=== PATIENT | male | born 1985 | race Caucasian/White ===

== ENCOUNTER 2020-03-25 15:42 | Inpatient (IN) | payer SELFPAY ==
[~2020-03-25] VITALS: Ht 182.9 cm; Wt 75.8 kg
[2020-03-25] MEDS ORDERED: IV NORMAL SALINE 1000ML BAG 1,000 ML IV SCH (16:00)
[2020-03-25] MEDS ORDERED: ONDANSETRON PF 4 MG/2 ML VIAL. IVP ONE ×2 (16:00→17:15)
--- NOTE | 2020-03-25 16:13 | PHYS DOC ---
General Adult EDM: Chief Complaint: NAUSEA/VOMITING/DIARRHA HPI: HPI: Patient is a 34 year old male who presents with nausea and vomiting since today. Can not keep anything fluids down. States he has only had ice chips today and has tried no food. Denies taking any medications to help his symptoms. Markel es pain, abdominal pain, chest pain, nasal congestion, dizziness, shortness of breath, diarrhea, headache, syncope, back pain, urinary symptoms, numbness or tingling, focal weakness, cough. Denies any past medical history, drug use, alcohol use, or surgeries. Review of Systems: Review of Systems: Constitutional: Denies fever or chills. [] Eyes: Denies change in visual acuity. [] HENT: Denies nasal congestion or sore throat. [] Respiratory: Denies cough or shortness of breath. [] Cardiovascular: Denies chest pain or edema. [] GI: Denies abdominal pain. + nausea, +vomiting, denies bloody stools or d iarrhea. [] : Denies dysuria. [] Musculoskeletal: Denies back pain or joint pain. [] Integument: Denies rash. [] Neurologic: Denies headache, focal weakness or sensory changes. [] Endocrine: Denies polyuria or polydipsia. [] Lymphatic: Denies swollen glands. [] Psychiatric: Denies depression or anxiety. [] Heart Score: Risk Factors: Risk Factors: DM, Current or recent (<one month) smoker, HTN, HLP, family history of CAD, obesity. Risk Scores: Score 0 - 3: 2.5% MACE over next 6 weeks - Discharge Home Score 4 - 6: 20.3% MACE over next 6 weeks - Admit for Clinical Observation Score 7 - 10: 72.7% MACE over next 6 weeks - Early Invasive Strategies Current Medications: Current Medications Medications (Trade) Dose Ordered Sig/Emilio Start Time Stop Time Status Last Admin Dose Admin Ondansetron HCl (Zofran) 4 mg 1X ONCE 03/25/20 16:00 03/25/20 16:04 DC Sodium Chloride 1,000 ml @ 1,000 mls/hr Q1H 03/25/20 16:00 03/25/20 16:59 Allergies: Allergies: Allergies Coded Allergies Type Severity Reaction Last Updated Verified Penicillins Allergy Unknown 03/25/20 Yes Physical Exam: PE: Constitutional: Well developed, well nourished, no acute distress, non-toxic appearance. [] HENT: Normocephalic, atraumatic, bilateral external ears normal, oropharynx moist, no oral exudates, nose normal. [] Eyes: PERRLA, EOMI, conjunctiva normal, no discharge. [] Neck: Normal range of motion, no tenderness, supple, no stridor. [] Cardiovascular:Heart rate regular rhythm, no murmur [] Lungs & Thorax: Bilateral breath sounds clear to auscultation [] Abdomen: Bowel sounds normal, soft, no tenderness, no masses, no pulsatile karl s. [] Skin: Warm, dry, no erythema, no rash. [] Back: No tenderness, no CVA tenderness. [] Extremities: No tenderness, no cyanosis, no clubbing, ROM intact, no edema. [] Neurologic: Alert and oriented X 3, normal motor function, normal sensory function, no focal deficits noted. [] Psychologic: Affect normal, judgement normal, mood normal. Normal Physical Exam[] EKG: EKG: [] Radiology/Procedures: Radiology/Procedures: [] Impression: [facility] [address] [place], [place] [id number] IMAGING REPORT Signed PATIENT: SALAZAR WORTHY ACCOUNT: [id number] : 1985 LOCATION: ER AGE: 34 SEX: M EXAM STATUS: REG ER ORD. PHYSICIAN: ALBERTO CASTILLO APRN REASON: ABD PAIN, VOMITING, PUI PROCEDURE: CT ABD PELV W/ IV CONTRST ONLY EXAM: CT Abdomen and Pelvis with IV contrast CLINICAL HISTORY: Reason: ABD PAIN, VOMITING, PUI COMPARISON: none TECHNIQUE: Helical CT of the abdomen and pelvis was performed following the administration of IV contrast. Axial, coronal and sagittal reformatted images were generated. ---PQRS compliance statement - One or more of the following individualized dose reduction techniques were utilized for this study: 1. Automated exposure control 2. Adjustment of the mA and/or kV according to patient size 3. Use of iterative reconstruction technique--- FINDINGS: Lower chest: Thickening of the distal esophagus, possibly from esophagitis or recent history of emesis. Abdomen and pelvis: No focal liver lesion. Liver is enlarged measuring 19 cm in length. High density material dependently within the gallbladder likely sludge. No biliary duct dilatation. Pancreas, spleen, adrenal glands are unremarkable. Symmetric nephrograms. No focal renal lesion. Punctate nonobstructing left lower pole renal calculus. No hydronephrosis or hydroureter. Partially distended bladder is unremarkable. Moderate colonic stool content is seen. No small or large bowel dilatation. No bowel obstruction. Appendix is not convincingly seen. Trace infiltration is seen about the right colon. No abdominal or pelvic lymphadenopathy. No abdominal or pelvic ascites. Aorta is normal in caliber. Bones: No aggressive osseous lesion is seen. IMPRESSION: 1. Thickening of the distal esophagus, possibly from esophagitis or recent history of emesis. 2. Trace infiltration is seen about the right colon, may represent colitis, possibly infectious or inflammatory in nature 3. Appendix is not convincingly seen. No secondary signs of acute appendicitis. 4. Punctate nonobstructing left lower pole renal calculus. Electronically signed by: Clive Alonzo MD (03/25/2020 6:28 PM) [facility] DICTATED and SIGNED BY: CLIVE ALONZO MD DATE: 03/25/20 [id number] 0 Course & Med Decision Making: Course & Med Decision Making Pertinent Labs and Imaging studies reviewed. (See chart for details) COVID-19 CRITERIA: The patient was evaluated during the global COVID-19 pandemic, and that diagnosis was suspected/considered upon their initial presentation. Their evaluation, treatment and testing was consistent with current guidelines for patients who present with complaints or symptoms that may be related to COVID-19. See HPI. Abdomen is soft and nontender. Speaks in full clear sentences. Ambulatory with steady gait. Skin pink warm and dry. Alert and oriented x 4. Vital signs wnl. IMPRESSION: 1. Thickening of the distal esophagus, possibly from esophagitis or recent history of emesis. 2. Trace infiltration is seen about the right colon, may represent colitis, possibly infectious or inflammatory in nature 3. Appendix is not convincingly seen. No secondary signs of acute appendicitis. 4. Punctate nonobstructing left lower pole renal calculus. Patient has received 2 L of fluid. Patient continues to vomit. He has received 8 mg of Zofran and I have just now ordered Compazine for him. I have ordered Flagyl and Cipro. Patient is admitted to Dr Owen for intractable vomiting. [] Juanito Disclaimer: Juanito Disclaimer: This electronic medical record was generated, in whole or in part, using a voice recognition dictation system. COVID-19 Patient Risks: Age 65 or older: No Sign of co-morbidity: No Exp to person + for COVID: No Exp to PUI: No Travel from affected area: No Lower respiratory symptoms: No Fever: No Other: Yes (nausea and vomiting) PPE Use: Full PPE with N95 mask or PAPR: Yes Departure Departure Impression: Primary Impression: Intractable nausea and vomiting Additional Impressions: Colitis Person under investigation for COVID-19 Disposition: 09 ADMITTED INPT THIS HOSP Admitting Physician: TIFFANY Condition: STABLE Referrals: NO PCP (PCP) ALBERTO CASTILLO APRN Mar 25, 2020 16:13
[2020-03-25 16:30] LABS: BASO % 0 % (0-3); EOS % 0 % (0-3); HEMATOCRIT 48.4 % (39.0-53.0); HEMOGLOBIN 16.7 g/dL (13.0-17.5); LYMPH % 9 % (24-48); MEAN CORPUSCULAR HEMOGLOBIN 31 pg (25-35); MEAN CORPUSCULAR HGB CONC 35 g/dL (31-37); MEAN CORPUSCULAR VOLUME 89 fL (79-100); MONO # 0.4 x10^3/uL (0.0-1.1); MONO % 3 % (0-9); NEUT # 10.5 x10^3/uL (1.8-7.7); NEUT % 88 % (31-73); PLATELET COUNT 203 x10^3/uL (140-400); RED BLOOD COUNT 5.44 x10^6/uL (4.30-5.70); RED CELL DISTRIBUTION WIDTH 14.3 % (11.5-14.5)
[2020-03-25 16:32] LABS: BILIRUBIN,URINE SMALL (NEG); CLARITY,URINE CLEAR; COLOR,URINE AMBER; NITRITE,URINE NEGATIVE (NEG); PROTEIN,URINE 100 mg/dL (NEG-TRACE)
[2020-03-25 16:39] LABS: BACTERIA,URINE 0 /HPF (0-FEW); RBC,URINE 0 /HPF (0-2); WBC,URINE OCC /HPF (0-4)
[2020-03-25 16:46] LABS: ANION GAP 16 (6-14); BLOOD UREA NITROGEN 13 mg/dL (8-26); BUN/CREATININE RATIO 9 (6-20); CALCIUM 9.7 mg/dL (8.5-10.1); CARBON DIOXIDE 25 mmol/L (21-32); CHLORIDE 101 mmol/L (98-107); CREATININE 1.4 mg/dL (0.7-1.3); GLUCOSE 203 mg/dL (70-99); POTASSIUM 4.1 mmol/L (3.5-5.1); SODIUM 142 mmol/L (136-145)
[2020-03-25 16:48] LABS: BARBITURATES NEG (NEG); BENZODIAZEPINES NEG (NEG); CANNABINOIDS NEG (NEG); COCAINE NEG (NEG); METHADONE NEG (NEG); OPIATES NEG (NEG); PHENCYCLIDINE NEG (NEG)
[2020-03-25 16:53] LABS: ALBUMIN 4.6 g/dL (3.4-5.0); ALBUMIN/GLOBULIN RATIO 1.4 (1.0-1.7); ALK PHOS 80 U/L (46-116); ALT (SGPT) 24 U/L (16-63); LIPASE 58 U/L (73-393); TOTAL BILIRUBIN 0.4 mg/dL (0.2-1.0)
[2020-03-25 16:59] LABS: % BANDS 4 % (0-9); % LYMPHS 6 % (24-48); % MONOS 5 % (0-10); % SEGS 85 % (35-66); AST (SGOT) < 5 U/L (15-37); PLT ESTIMATE ADEQUATE (ADEQUATE)
[2020-03-25 17:00] LABS: AMPHETAMINE/METHAMPHETAMINE NEG (NEG)
[2020-03-25] MEDS ORDERED: IV NORMAL SALINE 1000ML BAG 1,000 ML IV ONE (17:15)
[2020-03-25 17:41] LABS: INFLUENZA A PATIENT NEGATIVE (NEGATIVE); INFLUENZA B PATIENT NEGATIVE (NEGATIVE)
[2020-03-25] MEDS ORDERED: CONTRAST GIVEN. MC PRN (17:45)
[2020-03-25] MEDS ORDERED: IOHEXOL 300 MG/ML 100ML VIAL. IV ONE (17:45)
--- NOTE | 2020-03-25 18:31 | RAD ---
EXAM: CT Abdomen and Pelvis with IV contrast CLINICAL HISTORY: Reason: ABD PAIN, VOMITING, PUI COMPARISON: none TECHNIQUE: Helical CT of the abdomen and pelvis was performed following the administration of IV cont rast. Axial, coronal and sagittal reformatted images were generated. ---PQRS compliance statement - One or more of the following individualized dose reduction techniques were utilized for this study: 1. Automated exposure control 2. Adjustment of the mA and/or kV according to patient size 3. Use of iterative reconstruction technique--- FINDINGS: Lower chest: Thickening of the distal esophagus, possibly from esophagitis or recent history of emesi s. Abdomen and pelvis: No focal liver lesion. Liver is enlarged measuring 19 cm in length. High density material dependently within the gallbladder likely sludge. No biliary duct dilatation. Pancreas, spleen, adrenal glands a re unremarkable. Symmetric nephrograms. No focal renal lesion. Punctate nonobstructing left lower pole renal calculus. No hydronephrosis or hydroureter. Partially distended bladder is unremarkable. Moderate colonic stool content is seen. No small or large bowel dilatation. No bowel obstruction. Ivonne endix is not convincingly seen. Trace infiltration is seen about the right colon. No abdominal or pelvic lymphadenopathy. No abdominal or pelvic ascites. Aorta is normal in caliber. Bones: No aggressive osseous lesion is seen. IMPRESSION: 1. Thickening of the distal esophagus, possibly from esophagitis or recent history of emesis. 2. Trace infiltration is seen about the right colon, may represent colitis, possibly infectious or i nflammatory in nature 3. Appendix is not convincingly seen. No secondary signs of acute appendicitis. 4. Punctate nonobstructing left lower pole renal calculus. Electronically signed by: Clive Stoddard MD (03/25/2020 6:28 PM) PRANEETH
[2020-03-25] MEDS ORDERED: PROCHLORPERAZINE 10 MG/2 ML VIAL. IV ONE (19:00)
[2020-03-25] MEDS ORDERED: methylPREDNISolone SOD SUCC PF 40 MG/ML VIAL. IV ONE (19:00)
[2020-03-25] MEDS ORDERED: CIPROFLOXACIN 400MG PREMIX 200 ML IV ONE (19:00)
[2020-03-25] MEDS ORDERED: FAMOTIDINE 20 MG/2 ML VIAL IVP ONE (19:00)
[2020-03-25] MEDS ORDERED: fentaNYL PF VIAL 100 MCG/2 ML VIAL IV PRN (19:00)
[2020-03-25] MEDS ORDERED: ONDANSETRON PF 4 MG/2 ML VIAL. IV PRN (19:00)
[2020-03-25] MEDS: IV NORMAL SALINE 1000ML BAG 1,000 ML IV SCH (20:25)
--- NOTE | 2020-03-25 23:22 | NUR ---
The patient, SALAZAR WORTHY, 34 y/o, M admitted by QUINN JOHNSON III, DO, was given written information regarding hospital policies, unit procedures and contact persons. Valuables were checked and left with him.
[2020-03-25 23:44] VITALS: BP 119/64
[2020-03-26] MEDS ORDERED: ACETAMINOPHEN 325 MG TABLET. PO PRN (00:30)
[2020-03-26 03:00] VITALS: BP 101/56
[2020-03-26] MEDS: IV NORMAL SALINE 1000ML BAG 1,000 ML IV SCH ×2 (03:18→08:56)
[2020-03-26 07:00] VITALS: BP 100/54
[2020-03-26] MEDS ORDERED: FLU VACC QS 2020-21(6MOS+)/PF 0.5 ML SYRINGE. VAX IM ONE (09:00)
--- NOTE | 2020-03-26 09:22 | PDOC1 ---
History and Physical Date of Service: DOS: DATE: 03/26/20 TIME: 09:19 History of Present Illness: HPI: 34 year old male who presents with nausea and vomiting since today. Can not keep anything fluids down. States he has only had ice chips today and has tried no food. Denies taking any medications to help his symptoms. Denies pain, abdominal pain, chest pain, nasal congestion, dizziness, shortness of breath, diarrhea, headache, syncope, back pain, urinary symptoms, numbness or tingling, focal weakness, cough. Denies any past medical history, drug use, alcohol use, or surgeries. Allergies: Allergies: Coded Allergies: Penicillins (Verified Allergy, Intermediate, 03/26/20) Current Medications: Current Medications Current Medications Sodium Chloride 1,000 ml @ 1,000 mls/hr Q1H IV Last administered on 03/25/20at 16:20; Start 03/25/20 at 16:00; Stop 03/25/20 at 16:59; Status DC Ondansetron HCl (Zofran) 4 mg 1X ONCE IVP Last administered on 03/25/20at 16:21; Start 03/25/20 at 16:00; Stop 03/25/20 at 16:04; Status DC Ondansetron HCl (Zofran) 4 mg 1X ONCE IVP Last administered on 03/25/20at 17:12; Start 03/25/20 at 17:15; Stop 03/25/20 at 17:16; Status DC Sodium Chloride 1,000 ml @ 1,000 mls/hr 1X ONCE IV Last administered on 03/25/20at 18:38; Start 03/25/20 at 17:15; Stop 03/25/20 at 18:14; Status DC Iohexol (Omnipaque 300 Mg/ml) 60 ml 1X ONCE IV Last administered on 03/25/20at 17:59; Start 03/25/20 at 17:45; Stop 03/25/20 at 17:46; Status DC Info (CONTRAST GIVEN -- Rx MONITORING) 1 each PRN DAILY PRN MC SEE COMMENTS; Start 03/25/20 at 17:45; Stop 03/27/20 at 17:44 Prochlorperazine Edisylate (Compazine) 10 mg 1X ONCE IV Last administered on 03/25/20at 20:21; Start 03/25/20 at 19:00; Stop 03/25/20 at 19:01; Status DC Ciprofloxacin/ Dextrose 200 ml @ 200 mls/hr 1X ONCE IV Last administered on 03/25/20at 22:01; Start 03/25/20 at 19:00; Stop 03/25/20 at 19:59; Status DC Metronidazole 100 ml @ 100 mls/hr 1X ONCE IV Last administered on 03/25/20at 20:25; Start 03/25/20 at 19:00; Stop 03/25/20 at 19:59; Status DC Methylprednisolone Sodium Succinate (SOLU-Medrol 40MG VIAL) 80 mg 1X ONCE IV Last administered on 03/25/20at 20:19; Start 03/25/20 at 19:00; Stop 03/25/20 at 19:01; Status DC Famotidine (Pepcid Vial) 20 mg 1X ONCE IVP Last administered on 03/25/20at 20:21; Start 03/25/20 at 19:00; Stop 03/25/20 at 19:01; Status DC Ondansetron HCl (Zofran) 4 mg PRN Q8HRS PRN IV NAUSEA/VOMITING; Start 03/25/20 at 19:00; Stop 03/26/20 at 18:59 Fentanyl Citrate (Fentanyl 2ml Vial) 50 mcg PRN Q1HR PRN IV PAIN; Start 03/25/20 at 19:00; Stop 03/26/20 at 18:59 Sodium Chloride 1,000 ml @ 125 mls/hr Q8H IV Last administered on 03/26/20at 08:56; Start 03/25/20 at 19:00; Stop 03/26/20 at 18:59 Acetaminophen (Tylenol) 650 mg PRN Q6HRS PRN PO MILD PAIN / TEMP > 100.3'F Last administered on 03/26/20at 00:32; Start 03/26/20 at 00:30 Influenza Virus Vaccine Quadrival (Fluzone Quad Syringe) 0.5 ml ONCE ONCE VAX IM ; Start 03/26/20 at 09:00; Stop 03/26/20 at 09:01; Status DC ROS: Review of Systems Review of System REVIEW OF SYSTEMS: GENERAL: Denies weakness SKIN: No bruising, hair changes or rashes. EYES: No blurred, double or loss of vision. NOSE AND THROAT: No history of nosebleeds, hoarseness or sore throat. HEART: No history of palpitations, chest pain or shortness of breath on exertion. LUNGS: Denies cough, hemoptysis, wheezing or shortness of breath. GASTROINTESTINAL: Denies changes in appetite, nausea, vomiting, diarrhea or constipation. GENITOURINARY: No history of frequency, urgency, hesitancy or nocturia. NEUROLOGIC: Denies history of numbness, tingling, or tremor. PSYCHIATRIC: No history of panic, anxiety or depression. ENDOCRINE: No history of heat or cold intolerance, polyuria or polydipsia. EXTREMITIES: Denies joint pain, pain on walking or stiffness. Physical Exam: Vital Signs: Vital Signs Date Time Temp Pulse Resp B/P (MAP) Pulse Ox O2 Delivery O2 Flow Rate FiO2 03/26/20 07:00 98.7 74 18 100/54 (69) 96 Room Air 98.7 Physcial Exam: GEN: No apparent distress. Alert and oriented HEENT: Normal cephalic, atraumatic, external auditory canals are patent EYES: Extraocular muscles are intact, pupil are equally round and reactive to light and accommodation MUSCULOSKELETAL: Well developed , well nourished, good range of motion ENDOCRINE: No thyromegaly was palpated LYMPHATICS: No cervical chain or axillary nodes were noted HEMATOPOIETIC: No bruising NECK: Supple, no JVD, no thyromegaly was noted LUNGS: Clear to auscultation in all lung alex without rhonchi or wheezing HEART: RRR, S!, S2 present. Peripheral pulses intact, no obvious murmurs noted ABDOMEN: Soft, nontender. Positive bowel sounds, no organomegaly, normal bowel sounds EXTREMITIES: Without clubbing, cyanosis, or edema. Pedal pulses intact. Negative Homans sign NEUROLOGIC: Normal speech and tone. A&O x 3, moves all extremities, no obvious focal deficits PSYCHIATRIC: Normal affect, normal mood. Stable SKIN: No ulcerations or rashes, good skin turgor, no jaundice VASCULAR: Good capillary refill, neurovascular bundle appears to be intact Labs: Labs: Laboratory Tests Test 03/25/20 16:21 03/25/20 16:22 03/25/20 17:14 White Blood Count 12.0 x10^3/uL (4.0-11.0) Red Blood Count 5.44 x10^6/uL (4.30-5.70) Hemoglobin 16.7 g/dL (13.0-17.5) Hematocrit 48.4 % (39.0-53.0) Mean Corpuscular Volume 89 fL (79-100) Mean Corpuscular Hemoglobin 31 pg (25-35) Mean Corpuscular Hemoglobin Concent 35 g/dL (31-37) Red Cell Distribution Width 14.3 % (11.5-14.5) Platelet Count 203 x10^3/uL (140-400) Neutrophils (%) (Auto) 88 % (31-73) Lymphocytes (%) (Auto) 9 % (24-48) Monocytes (%) (Auto) 3 % (0-9) Eosinophils (%) (Auto) 0 % (0-3) Basophils (%) (Auto) 0 % (0-3) Neutrophils # (Auto) 10.5 x10^3/uL (1.8-7.7) Lymphocytes # (Auto) 1.0 x10^3/uL (1.0-4.8) Monocytes # (Auto) 0.4 x10^3/uL (0.0-1.1) Eosinophils # (Auto) 0.0 x10^3/uL (0.0-0.7) Basophils # (Auto) 0.0 x10^3/uL (0.0-0.2) Segmented Neutrophils % 85 % (35-66) Band Neutrophils % 4 % (0-9) Lymphocytes % 6 % (24-48) Monocytes % 5 % (0-10) Platelet Estimate Adequate (ADEQUATE) Sodium Level 142 mmol/L (136-145) Potassium Level 4.1 mmol/L (3.5-5.1) Chloride Level 101 mmol/L (98-107) Carbon Dioxide Level 25 mmol/L (21-32) Anion Gap 16 (6-14) Blood Urea Nitrogen 13 mg/dL (8-26) Creatinine 1.4 mg/dL (0.7-1.3) Estimated GFR (Cockcroft-Gault) 58.0 BUN/Creatinine Ratio 9 (6-20) Glucose Level 203 mg/dL (70-99) Calcium Level 9.7 mg/dL (8.5-10.1) Total Bilirubin 0.4 mg/dL (0.2-1.0) Aspartate Amino Transf (AST/SGOT) < 5 U/L (15-37) Alanine Aminotransferase (ALT/SGPT) 24 U/L (16-63) Alkaline Phosphatase 80 U/L (46-116) Total Protein 8.0 g/dL (6.4-8.2) Albumin 4.6 g/dL (3.4-5.0) Albumin/Globulin Ratio 1.4 (1.0-1.7) Lipase 58 U/L (73-393) Acetone Level Neg (NEG) Urine Collection Type Unknown Urine Color Susana Urine Clarity Clear Urine pH 6.0 (<5.0-8.0) Urine Specific [place] >=1.030 (1.000-1.030) Urine Protein 100 mg/dL (NEG-TRACE) Urine Glucose (UA) Negative mg/dL (NEG) Urine Ketones (Stick) Trace mg/dL (NEG) Urine Blood Negative (NEG) Urine Nitrite Negative (NEG) Urine Bilirubin Small (NEG) Urine Urobilinogen Dipstick 1.0 mg/dL (0.2 mg/dL) Urine Leukocyte Esterase Negative (NEG) Urine RBC 0 /HPF (0-2) Urine WBC Occ /HPF (0-4) Urine Bacteria 0 /HPF (0-FEW) Urine Mucus Marked /LPF Urine Opiates Screen Neg (NEG) Urine Methadone Screen Neg (NEG) Urine Barbiturates Neg (NEG) Urine Phencyclidine Screen Neg (NEG) Urine Amphetamine/Methamphetamine Neg (NEG) Urine Benzodiazepines Screen Neg (NEG) Urine Cocaine Screen Neg (NEG) Urine Cannabinoids Screen Neg (NEG) Urine Ethyl Alcohol Neg (NEG) Influenza Type A Antigen Negative (NEGATIVE) Influenza Type B Antigen Negative (NEGATIVE) Laboratory Tests Test 03/25/20 16:21 03/25/20 16:22 03/25/20 17:14 White Blood Count 12.0 x10^3/uL (4.0-11.0) Red Blood Count 5.44 x10^6/uL (4.30-5.70) Hemoglobin 16.7 g/dL (13.0-17.5) Hematocrit 48.4 % (39.0-53.0) Mean Corpuscular Volume 89 fL (79-100) Mean Corpuscular Hemoglobin 31 pg (25-35) Mean Corpuscular Hemoglobin Concent 35 g/dL (31-37) Red Cell Distribution Width 14.3 % (11.5-14.5) Platelet Count 203 x10^3/uL (140-400) Neutrophils (%) (Auto) 88 % (31-73) Lymphocytes (%) (Auto) 9 % (24-48) Monocytes (%) (Auto) 3 % (0-9) Eosinophils (%) (Auto) 0 % (0-3) Basophils (%) (Auto) 0 % (0-3) Neutrophils # (Auto) 10.5 x10^3/uL (1.8-7.7) Lymphocytes # (Auto) 1.0 x10^3/uL (1.0-4.8) Monocytes # (Auto) 0.4 x10^3/uL (0.0-1.1) Eosinophils # (Auto) 0.0 x10^3/uL (0.0-0.7) Basophils # (Auto) 0.0 x10^3/uL (0.0-0.2) Segmented Neutrophils % 85 % (35-66) Band Neutrophils % 4 % (0-9) Lymphocytes % 6 % (24-48) Monocytes % 5 % (0-10) Platelet Estimate Adequate (ADEQUATE) Sodium Level 142 mmol/L (136-145) Potassium Level 4.1 mmol/L (3.5-5.1) Chloride Level 101 mmol/L (98-107) Carbon Dioxide Level 25 mmol/L (21-32) Anion Gap 16 (6-14) Blood Urea Nitrogen 13 mg/dL (8-26) Creatinine 1.4 mg/dL (0.7-1.3) Estimated GFR (Cockcroft-Gault) 58.0 BUN/Creatinine Ratio 9 (6-20) Glucose Level 203 mg/dL (70-99) Calcium Level 9.7 mg/dL (8.5-10.1) Total Bilirubin 0.4 mg/dL (0.2-1.0) Aspartate Amino Transf (AST/SGOT) < 5 U/L (15-37) Alanine Aminotransferase (ALT/SGPT) 24 U/L (16-63) Alkaline Phosphatase 80 U/L (46-116) Total Protein 8.0 g/dL (6.4-8.2) Albumin 4.6 g/dL (3.4-5.0) Albumin/Globulin Ratio 1.4 (1.0-1.7) Lipase 58 U/L (73-393) Acetone Level Neg (NEG) Urine Collection Type Unknown Urine Color Susana Urine Clarity Clear Urine pH 6.0 (<5.0-8.0) Urine Specific [place] >=1.030 (1.000-1.030) Urine Protein 100 mg/dL (NEG-TRACE) Urine Glucose (UA) Negative mg/dL (NEG) Urine Ketones (Stick) Trace mg/dL (NEG) Urine Blood Negative (NEG) Urine Nitrite Negative (NEG) Urine Bilirubin Small (NEG) Urine Urobilinogen Dipstick 1.0 mg/dL (0.2 mg/dL) Urine Leukocyte Esterase Negative (NEG) Urine RBC 0 /HPF (0-2) Urine WBC Occ /HPF (0-4) Urine Bacteria 0 /HPF (0-FEW) Urine Mucus Marked /LPF Urine Opiates Screen Neg (NEG) Urine Methadone Screen Neg (NEG) Urine Barbiturates Neg (NEG) Urine Phencyclidine Screen Neg (NEG) Urine Amphetamine/Methamphetamine Neg (NEG) Urine Benzodiazepines Screen Neg (NEG) Urine Cocaine Screen Neg (NEG) Urine Cannabinoids Screen Neg (NEG) Urine Ethyl Alcohol Neg (NEG) Influenza Type A Antigen Negative (NEGATIVE) Influenza Type B Antigen Negative (NEGATIVE) Images: Images CT ABD/PELVIS FINDINGS: Lower chest: Thickening of the distal esophagus, possibly from esophagitis or recent history of emesis. Abdomen and pelvis: No focal liver lesion. Liver is enlarged measuring 19 cm in length. High density material dependently within the gallbladder likely sludge. No biliary duct dilatation. Pancreas, spleen, adrenal glands are unremarkable. Symmetric nephrograms. No focal renal lesion. Punctate nonobstructing left lower pole renal calculus. No hydronephrosis or hydroureter. Partially distended bladder is unremarkable. Moderate colonic stool content is seen. No small or large bowel dilatation. No bowel obstruction. Appendix is not convincingly seen. Trace infiltration is seen about the right colon. No abdominal or pelvic lymphadenopathy. No abdominal or pelvic ascites. Aorta is normal in caliber. Assessment/Plan Assessment/Plan Intractable nausea vomiting SANTOS due to vasomotor nephropathy Hyperglycemia Enlarged liver Justifications for Admission Other Justification SPENCER RAMIREZ MD Mar 26, 2020 09:22
[2020-03-26 11:00] VITALS: BP 104/53
--- NOTE | 2020-03-26 13:00 | PDOC2 ---
CONSULT Date of Consult Date of Consult DATE: 03/26/20 TIME: 12:49 Reason for Consult Reason for Consult: Nausea and vomiting History of Present Illness Reason for Visit: This is an otherwise healthy 34-year-old gentleman who describes the onset of some anorexia on followed by nausea and then vomiting. This recurred and was associated with some weight loss apparently over the last 2 days but not any hematemesis. He describes no diarrhea or fevers. Curiously he had a similar episode 2 years ago and was admitted at [facility]. At that point he had vomiting for several more days because he was not sure what was going on but their extensive work-up apparently did not reveal a source. On both occasion he denies any illicit drug use, new medications, change in diet or alcohol intake etc. No fevers or viral illnesses have been implicated so far and his initial influenza screen was negative. Between his episode 2 years ago and the episode starting this week he denies any chronic GI complaints including no nausea, vomiting, dysphagia, heartburn, dyspepsia, abdominal pain, bleeding or change in bowel pattern Current Problem List Problem List Problems Medical Problems: (1) Colitis Status: Acute (2) Intractable nausea and vomiting Status: Acute (3) Person under investigation for COVID-19 Status: Acute Current Medications Current Medications Current Medications Sodium Chloride 1,000 ml @ 1,000 mls/hr Q1H IV Last administered on 03/25/20at 16:20; Start 03/25/20 at 16:00; Stop 03/25/20 at 16:59; Status DC Ondansetron HCl (Zofran) 4 mg 1X ONCE IVP Last administered on 03/25/20at 16:21; Start 03/25/20 at 16:00; Stop 03/25/20 at 16:04; Status DC Ondansetron HCl (Zofran) 4 mg 1X ONCE IVP Last administered on 03/25/20at 17:12; Start 03/25/20 at 17:15; Stop 03/25/20 at 17:16; Status DC Sodium Chloride 1,000 ml @ 1,000 mls/hr 1X ONCE IV Last administered on 03/25/20at 18:38; Start 03/25/20 at 17:15; Stop 03/25/20 at 18:14; Status DC Iohexol (Omnipaque 300 Mg/ml) 60 ml 1X ONCE IV Last administered on 03/25/20at 17:59; Start 03/25/20 at 17:45; Stop 03/25/20 at 17:46; Status DC Info (CONTRAST GIVEN -- Rx MONITORING) 1 each PRN DAILY PRN MC SEE COMMENTS; Start 03/25/20 at 17:45; Stop 03/27/20 at 17:44 Prochlorperazine Edisylate (Compazine) 10 mg 1X ONCE IV Last administered on 03/25/20at 20:21; Start 03/25/20 at 19:00; Stop 03/25/20 at 19:01; Status DC Ciprofloxacin/ Dextrose 200 ml @ 200 mls/hr 1X ONCE IV Last administered on 03/25/20at 22:01; Start 03/25/20 at 19:00; Stop 03/25/20 at 19:59; Status DC Metronidazole 100 ml @ 100 mls/hr 1X ONCE IV Last administered on 03/25/20at 20:25; Start 03/25/20 at 19:00; Stop 03/25/20 at 19:59; Status DC Methylprednisolone Sodium Succinate (SOLU-Medrol 40MG VIAL) 80 mg 1X ONCE IV Last administered on 03/25/20at 20:19; Start 03/25/20 at 19:00; Stop 03/25/20 at 19:01; Status DC Famotidine (Pepcid Vial) 20 mg 1X ONCE IVP Last administered on 03/25/20at 20:21; Start 03/25/20 at 19:00; Stop 03/25/20 at 19:01; Status DC Ondansetron HCl (Zofran) 4 mg PRN Q8HRS PRN IV NAUSEA/VOMITING; Start 03/25/20 at 19:00; Stop 03/26/20 at 18:59 Fentanyl Citrate (Fentanyl 2ml Vial) 50 mcg PRN Q1HR PRN IV PAIN; Start 03/25/20 at 19:00; Stop 03/26/20 at 18:59 Sodium Chloride 1,000 ml @ 125 mls/hr Q8H IV Last administered on 03/26/20at 08:56; Start 03/25/20 at 19:00; Stop 03/26/20 at 18:59 Acetaminophen (Tylenol) 650 mg PRN Q6HRS PRN PO MILD PAIN / TEMP > 100.3'F Last administered on 03/26/20at 00:32; Start 03/26/20 at 00:30 Influenza Virus Vaccine Quadrival (Fluzone Quad Syringe) 0.5 ml ONCE ONCE VAX IM ; Start 03/26/20 at 09:00; Stop 03/26/20 at 09:01; Status DC Allergies Allergies: Coded Allergies: Penicillins (Verified Allergy, Intermediate, 03/26/20) Physical Exam General: Alert, Oriented X3 HEENT: Atraumatic Lungs: Clear to auscultation Heart: Regular rate, Normal S1, Normal S2 Abdomen: Normal bowel sounds, Soft, No tenderness, No hepatosplenomegaly, No masses Extremities: No clubbing, No cyanosis Neuro: Normal speech Psych/Mental Status: Mental status NL Vitals VITALS Vital Signs Date Time Temp Pulse Resp B/P (MAP) Pulse Ox O2 Delivery O2 Flow Rate FiO2 03/26/20 08:00 Room Air 03/26/20 07:00 98.7 74 18 100/54 (69) 96 98.7 Labs Labs Laboratory Tests Test 03/25/20 16:21 03/25/20 16:22 03/25/20 17:14 White Blood Count 12.0 x10^3/uL (4.0-11.0) Red Blood Count 5.44 x10^6/uL (4.30-5.70) Hemoglobin 16.7 g/dL (13.0-17.5) Hematocrit 48.4 % (39.0-53.0) Mean Corpuscular Volume 89 fL (79-100) Mean Corpuscular Hemoglobin 31 pg (25-35) Mean Corpuscular Hemoglobin Concent 35 g/dL (31-37) Red Cell Distribution Width 14.3 % (11.5-14.5) Platelet Count 203 x10^3/uL (140-400) Neutrophils (%) (Auto) 88 % (31-73) Lymphocytes (%) (Auto) 9 % (24-48) Monocytes (%) (Auto) 3 % (0-9) Eosinophils (%) (Auto) 0 % (0-3) Basophils (%) (Auto) 0 % (0-3) Neutrophils # (Auto) 10.5 x10^3/uL (1.8-7.7) Lymphocytes # (Auto) 1.0 x10^3/uL (1.0-4.8) Monocytes # (Auto) 0.4 x10^3/uL (0.0-1.1) Eosinophils # (Auto) 0.0 x10^3/uL (0.0-0.7) Basophils # (Auto) 0.0 x10^3/uL (0.0-0.2) Segmented Neutrophils % 85 % (35-66) Band Neutrophils % 4 % (0-9) Lymphocytes % 6 % (24-48) Monocytes % 5 % (0-10) Platelet Estimate Adequate (ADEQUATE) Sodium Level 142 mmol/L (136-145) Potassium Level 4.1 mmol/L (3.5-5.1) Chloride Level 101 mmol/L (98-107) Carbon Dioxide Level 25 mmol/L (21-32) Anion Gap 16 (6-14) Blood Urea Nitrogen 13 mg/dL (8-26) Creatinine 1.4 mg/dL (0.7-1.3) Estimated GFR (Cockcroft-Gault) 58.0 BUN/Creatinine Ratio 9 (6-20) Glucose Level 203 mg/dL (70-99) Calcium Level 9.7 mg/dL (8.5-10.1) Total Bilirubin 0.4 mg/dL (0.2-1.0) Aspartate Amino Transf (AST/SGOT) < 5 U/L (15-37) Alanine Aminotransferase (ALT/SGPT) 24 U/L (16-63) Alkaline Phosphatase 80 U/L (46-116) Total Protein 8.0 g/dL (6.4-8.2) Albumin 4.6 g/dL (3.4-5.0) Albumin/Globulin Ratio 1.4 (1.0-1.7) Lipase 58 U/L (73-393) Acetone Level Neg (NEG) Urine Collection Type Unknown Urine Color Susana Urine Clarity Clear Urine pH 6.0 (<5.0-8.0) Urine Specific [place] >=1.030 (1.000-1.030) Urine Protein 100 mg/dL (NEG-TRACE) Urine Glucose (UA) Negative mg/dL (NEG) Urine Ketones (Stick) Trace mg/dL (NEG) Urine Blood Negative (NEG) Urine Nitrite Negative (NEG) Urine Bilirubin Small (NEG) Urine Urobilinogen Dipstick 1.0 mg/dL (0.2 mg/dL) Urine Leukocyte Esterase Negative (NEG) Urine RBC 0 /HPF (0-2) Urine WBC Occ /HPF (0-4) Urine Bacteria 0 /HPF (0-FEW) Urine Mucus Marked /LPF Urine Opiates Screen Neg (NEG) Urine Methadone Screen Neg (NEG) Urine Barbiturates Neg (NEG) Urine Phencyclidine Screen Neg (NEG) Urine Amphetamine/Methamphetamine Neg (NEG) Urine Benzodiazepines Screen Neg (NEG) Urine Cocaine Screen Neg (NEG) Urine Cannabinoids Screen Neg (NEG) Urine Ethyl Alcohol Neg (NEG) Influenza Type A Antigen Negative (NEGATIVE) Influenza Type B Antigen Negative (NEGATIVE) Laboratory Tests Test 03/25/20 16:21 03/25/20 16:22 03/25/20 17:14 White Blood Count 12.0 x10^3/uL (4.0-11.0) Red Blood Count 5.44 x10^6/uL (4.30-5.70) Hemoglobin 16.7 g/dL (13.0-17.5) Hematocrit 48.4 % (39.0-53.0) Mean Corpuscular Volume 89 fL (79-100) Mean Corpuscular Hemoglobin 31 pg (25-35) Mean Corpuscular Hemoglobin Concent 35 g/dL (31-37) Red Cell Distribution Width 14.3 % (11.5-14.5) Platelet Count 203 x10^3/uL (140-400) Neutrophils (%) (Auto) 88 % (31-73) Lymphocytes (%) (Auto) 9 % (24-48) Monocytes (%) (Auto) 3 % (0-9) Eosinophils (%) (Auto) 0 % (0-3) Basophils (%) (Auto) 0 % (0-3) Neutrophils # (Auto) 10.5 x10^3/uL (1.8-7.7) Lymphocytes # (Auto) 1.0 x10^3/uL (1.0-4.8) Monocytes # (Auto) 0.4 x10^3/uL (0.0-1.1) Eosinophils # (Auto) 0.0 x10^3/uL (0.0-0.7) Basophils # (Auto) 0.0 x10^3/uL (0.0-0.2) Segmented Neutrophils % 85 % (35-66) Band Neutrophils % 4 % (0-9) Lymphocytes % 6 % (24-48) Monocytes % 5 % (0-10) Platelet Estimate Adequate (ADEQUATE) Sodium Level 142 mmol/L (136-145) Potassium Level 4.1 mmol/L (3.5-5.1) Chloride Level 101 mmol/L (98-107) Carbon Dioxide Level 25 mmol/L (21-32) Anion Gap 16 (6-14) Blood Urea Nitrogen 13 mg/dL (8-26) Creatinine 1.4 mg/dL (0.7-1.3) Estimated GFR (Cockcroft-Gault) 58.0 BUN/Creatinine Ratio 9 (6-20) Glucose Level 203 mg/dL (70-99) Calcium Level 9.7 mg/dL (8.5-10.1) Total Bilirubin 0.4 mg/dL (0.2-1.0) Aspartate Amino Transf (AST/SGOT) < 5 U/L (15-37) Alanine Aminotransferase (ALT/SGPT) 24 U/L (16-63) Alkaline Phosphatase 80 U/L (46-116) Total Protein 8.0 g/dL (6.4-8.2) Albumin 4.6 g/dL (3.4-5.0) Albumin/Globulin Ratio 1.4 (1.0-1.7) Lipase 58 U/L (73-393) Acetone Level Neg (NEG) Urine Collection Type Unknown Urine Color Susana Urine Clarity Clear Urine pH 6.0 (<5.0-8.0) Urine Specific [place] >=1.030 (1.000-1.030) Urine Protein 100 mg/dL (NEG-TRACE) Urine Glucose (UA) Negative mg/dL (NEG) Urine Ketones (Stick) Trace mg/dL (NEG) Urine Blood Negative (NEG) Urine Nitrite Negative (NEG) Urine Bilirubin Small (NEG) Urine Urobilinogen Dipstick 1.0 mg/dL (0.2 mg/dL) Urine Leukocyte Esterase Negative (NEG) Urine RBC 0 /HPF (0-2) Urine WBC Occ /HPF (0-4) Urine Bacteria 0 /HPF (0-FEW) Urine Mucus Marked /LPF Urine Opiates Screen Neg (NEG) Urine Methadone Screen Neg (NEG) Urine Barbiturates Neg (NEG) Urine Phencyclidine Screen Neg (NEG) Urine Amphetamine/Methamphetamine Neg (NEG) Urine Benzodiazepines Screen Neg (NEG) Urine Cocaine Screen Neg (NEG) Urine Cannabinoids Screen Neg (NEG) Urine Ethyl Alcohol Neg (NEG) Influenza Type A Antigen Negative (NEGATIVE) Influenza Type B Antigen Negative (NEGATIVE) Images Images CT scan revealing some questionable sludge in the gallbladder, an enlarged liver without obvious mass, constipation, and some mild possible inflammatory changes in the right colon although this is very subjective Assessment/Plan Assessment/Plan Acute onset nausea and vomiting for the last 2 days. No trigger as far as the patient can recall and his blood work and urine drug screen point away from illi cit drug use or alcohol. The one curious finding on his blood work is an elevated glucose however his urine was negative for glucose so this may be a curiosity of IV fluids rather than truly new onset diabetes. However it should be explored. The other curious finding is sludge in the gallbladder and an enlarged liver. We do not have any reason for either of these and they were new findings to the patient as well. Reevaluation of the gallbladder with an ultrasound would be appropriate since intermittent unexplained nausea and vomiting episodes can be associated with biliary dyskinesia. Absence of chronic GI symptoms however seems to preclude ulcer disease or gastric obstruction so endoscopic evaluation urgently is not warranted. Plan: Ultrasound of the abdomen Clear liquid diet as tolerated Check labs to make sure his reactive leukocytosis resolves and that no additional significant lab abnormalities develop Monitor and consider further work-up later as an outpatient KIMBERLY RHODES MD Mar 26, 2020 13:00
[2020-03-26 15:00] VITALS: BP 115/53
[2020-03-26 19:00] VITALS: BP 122/71
[2020-03-26] MEDS ORDERED: PROCHLORPERAZINE 10 MG/2 ML VIAL. IV PRN (23:00)
[2020-03-26 23:48] VITALS: BP 115/54
[2020-03-27 03:00] VITALS: BP 103/50
--- NOTE | 2020-03-27 03:23 | RAD ---
US ABDOMEN LTD: 03/27/2020 2:51 AM Indication: 34 years old Male. Nausea and vomiting. Comparison: None. TECHNIQUE: Sonographic evaluation of the right upper quadrant was performed utilizing grayscale and c olor Doppler imaging. FINDINGS: Liver: Homogenous normal echotexture.. There is hepatopedal flow within the portal venous system. Rig ht hepatic lobe measures 17.8 cm. Biliary system: CBD measures 2.6 mm. There is no intrahepatic or extrahepatic biliary dilatation. Gallbladder: Sludge is identified within gallbladder. No gallbladder wall thickening or pericholecyst ic fluid . Sonographic Nath sign: Negative Pancreas: Visualized head and uncinate process are unremarkable. Body and tail are not visualized. Right kidney: 10.6 x 4.3 x 4.1 cm. No hydronephrosis. Normal echotexture without focal mass or renal calculus. Free fluid:None. IVC is normal. IMPRESSION: Slightly identified within the gallbladder without sonographic evidence for acute cholecystitis. Electronically signed by: Jordyn Urrutia MD (03/27/2020 3:20 AM) DONALD
[2020-03-27 07:18] VITALS: BP 122/58
--- NOTE | 2020-03-27 08:47 | PDOC ---
G I PROGRESS NOTE Reason for Follow-up Abd pain Subjective Pain improving Physical Exam Lungs clear CV S1 S2 ABd +BS, soft, mild epi tenderness to palpation Review of Relevant I have reviewed the following items elieser (where applicable) has been applied. Labs Laboratory Tests Test 03/25/20 16:21 03/25/20 16:22 03/25/20 17:14 White Blood Count 12.0 x10^3/uL (4.0-11.0) Red Blood Count 5.44 x10^6/uL (4.30-5.70) Hemoglobin 16.7 g/dL (13.0-17.5) Hematocrit 48.4 % (39.0-53.0) Mean Corpuscular Volume 89 fL (79-100) Mean Corpuscular Hemoglobin 31 pg (25-35) Mean Corpuscular Hemoglobin Concent 35 g/dL (31-37) Red Cell Distribution Width 14.3 % (11.5-14.5) Platelet Count 203 x10^3/uL (140-400) Neutrophils (%) (Auto) 88 % (31-73) Lymphocytes (%) (Auto) 9 % (24-48) Monocytes (%) (Auto) 3 % (0-9) Eosinophils (%) (Auto) 0 % (0-3) Basophils (%) (Auto) 0 % (0-3) Neutrophils # (Auto) 10.5 x10^3/uL (1.8-7.7) Lymphocytes # (Auto) 1.0 x10^3/uL (1.0-4.8) Monocytes # (Auto) 0.4 x10^3/uL (0.0-1.1) Eosinophils # (Auto) 0.0 x10^3/uL (0.0-0.7) Basophils # (Auto) 0.0 x10^3/uL (0.0-0.2) Segmented Neutrophils % 85 % (35-66) Band Neutrophils % 4 % (0-9) Lymphocytes % 6 % (24-48) Monocytes % 5 % (0-10) Platelet Estimate Adequate (ADEQUATE) Sodium Level 142 mmol/L (136-145) Potassium Level 4.1 mmol/L (3.5-5.1) Chloride Level 101 mmol/L (98-107) Carbon Dioxide Level 25 mmol/L (21-32) Anion Gap 16 (6-14) Blood Urea Nitrogen 13 mg/dL (8-26) Creatinine 1.4 mg/dL (0.7-1.3) Estimated GFR (Cockcroft-Gault) 58.0 BUN/Creatinine Ratio 9 (6-20) Glucose Level 203 mg/dL (70-99) Calcium Level 9.7 mg/dL (8.5-10.1) Total Bilirubin 0.4 mg/dL (0.2-1.0) Aspartate Amino Transf (AST/SGOT) < 5 U/L (15-37) Alanine Aminotransferase (ALT/SGPT) 24 U/L (16-63) Alkaline Phosphatase 80 U/L (46-116) Total Protein 8.0 g/dL (6.4-8.2) Albumin 4.6 g/dL (3.4-5.0) Albumin/Globulin Ratio 1.4 (1.0-1.7) Lipase 58 U/L (73-393) Acetone Level Neg (NEG) Urine Collection Type Unknown Urine Color Susana Urine Clarity Clear Urine pH 6.0 (<5.0-8.0) Urine Specific [place] >=1.030 (1.000-1.030) Urine Protein 100 mg/dL (NEG-TRACE) Urine Glucose (UA) Negative mg/dL (NEG) Urine Ketones (Stick) Trace mg/dL (NEG) Urine Blood Negative (NEG) Urine Nitrite Negative (NEG) Urine Bilirubin Small (NEG) Urine Urobilinogen Dipstick 1.0 mg/dL (0.2 mg/dL) Urine Leukocyte Esterase Negative (NEG) Urine RBC 0 /HPF (0-2) Urine WBC Occ /HPF (0-4) Urine Bacteria 0 /HPF (0-FEW) Urine Mucus Marked /LPF Urine Opiates Screen Neg (NEG) Urine Methadone Screen Neg (NEG) Urine Barbiturates Neg (NEG) Urine Phencyclidine Screen Neg (NEG) Urine Amphetamine/Methamphetamine Neg (NEG) Urine Benzodiazepines Screen Neg (NEG) Urine Cocaine Screen Neg (NEG) Urine Cannabinoids Screen Neg (NEG) Urine Ethyl Alcohol Neg (NEG) Coronavirus (PCR) Not detected (Not Detected) Influenza Type A Antigen Negative (NEGATIVE) Influenza Type B Antigen Negative (NEGATIVE) Medications Current Medications Sodium Chloride 1,000 ml @ 1,000 mls/hr Q1H IV Last administered on 03/25/20at 16:20; Start 03/25/20 at 16:00; Stop 03/25/20 at 16:59; Status DC Ondansetron HCl (Zofran) 4 mg 1X ONCE IVP Last administered on 03/25/20at 16:21; Start 03/25/20 at 16:00; Stop 03/25/20 at 16:04; Status DC Ondansetron HCl (Zofran) 4 mg 1X ONCE IVP Last administered on 03/25/20at 17:12; Start 03/25/20 at 17:15; Stop 03/25/20 at 17:16; Status DC Sodium Chloride 1,000 ml @ 1,000 mls/hr 1X ONCE IV Last administered on 03/25/20at 18:38; Start 03/25/20 at 17:15; Stop 03/25/20 at 18:14; Status DC Iohexol (Omnipaque 300 Mg/ml) 60 ml 1X ONCE IV Last administered on 03/25/20at 17:59; Start 03/25/20 at 17:45; Stop 03/25/20 at 17:46; Status DC Info (CONTRAST GIVEN -- Rx MONITORING) 1 each PRN DAILY PRN MC SEE COMMENTS; S tart 03/25/20 at 17:45; Stop 03/27/20 at 17:44 Prochlorperazine Edisylate (Compazine) 10 mg 1X ONCE IV Last administered on 03/25/20at 20:21; Start 03/25/20 at 19:00; Stop 03/25/20 at 19:01; Status DC Ciprofloxacin/ Dextrose 200 ml @ 200 mls/hr 1X ONCE IV Last administered on 03/25/20at 22:01; Start 03/25/20 at 19:00; Stop 03/25/20 at 19:59; Status DC Metronidazole 100 ml @ 100 mls/hr 1X ONCE IV Last administered on 03/25/20at 20:25; Start 03/25/20 at 19:00; Stop 03/25/20 at 19:59; Status DC Methylprednisolone Sodium Succinate (SOLU-Medrol 40MG VIAL) 80 mg 1X ONCE IV Last administered on 03/25/20at 20:19; Start 03/25/20 at 19:00; Stop 03/25/20 at 19:01; Status DC Famotidine (Pepcid Vial) 20 mg 1X ONCE IVP Last administered on 03/25/20at 20:21; Start 03/25/20 at 19:00; Stop 03/25/20 at 19:01; Status DC Ondansetron HCl (Zofran) 4 mg PRN Q8HRS PRN IV NAUSEA/VOMITING; Start 03/25/20 at 19:00; Stop 03/26/20 at 18:59; Status DC Fentanyl Citrate (Fentanyl 2ml Vial) 50 mcg PRN Q1HR PRN IV PAIN; Start 03/25/20 at 19:00; Stop 03/26/20 at 18:59; Status DC Sodium Chloride 1,000 ml @ 125 mls/hr Q8H IV Last administered on 03/26/20at 08:56; Start 03/25/20 at 19:00; Stop 03/26/20 at 18:59; Status DC Acetaminophen (Tylenol) 650 mg PRN Q6HRS PRN PO MILD PAIN / TEMP > 100.3'F Last administered on 03/26/20at 00:32; Start 03/26/20 at 00:30 Influenza Virus Vaccine Quadrival (Fluzone Quad [id number] Syringe) 0.5 ml ONCE ONCE VAX IM ; Start 03/26/20 at 09:00; Stop 03/26/20 at 09:01; Status DC Prochlorperazine Edisylate (Compazine) 10 mg PRN Q6HRS PRN IV NAUSEA/VOMITING 1ST CHOICE Last administered on 03/26/20at 22:55; Start 03/26/20 at 23:00 Vitals/I & O Vital Sign - Last 24 Hours 03/26/20 03/26/20 03/26/20 03/26/20 11:00 15:00 19:00 20:00 Temp 98.2 99.1 98.2 99.1 Pulse 64 67 62 Resp 19 18 16 B/P (MAP) 104/53 (70) 115/53 (73) 122/71 (88) Pulse Ox 99 99 98 O2 Delivery Room Air Room Air Room Air Room Air 03/26/20 03/27/20 03/27/20 23:48 03:00 07:18 Temp 98.8 98.3 97.9 98.8 98.3 97.9 Pulse 62 65 61 Resp 20 18 18 B/P (MAP) 115/54 (74) 103/50 (67) 122/58 (79) Pulse Ox 97 97 98 O2 Delivery Room Air Room Air Room Air Intake and Output 03/26/20 03/26/20 03/27/20 15:00 23:00 07:00 Intake Total 1000 ml 950 ml 400 ml Output Total 200 ml Balance 800 ml 950 ml 400 ml Problem List Problems Medical Problems: (1) Colitis Status: Acute (2) Intractable nausea and vomiting Status: Acute (3) Person under investigation for COVID-19 Status: Acute Justicifation of Admission Dx: Justifications for Admission: Justification of Admission Dx: Yes ANANYA BEE MD Mar 27, 2020 08:47
[2020-03-27 11:14] VITALS: BP 119/65
[2020-03-27] MEDS ORDERED: DICY10CA3 PO (11:23)
[2020-03-27] MEDS ORDERED: PROC10TA57 PO (11:23)
--- NOTE | 2020-03-27 11:26 | DISCH ---
DISCHARGE INSTRUCTIONS Condition on Discharge Condition on Discharge: Stable Activity After Discharge Activity Instructions for Disc: Activity as tolerated Driving Instructions after Dis: Do not drive today Weight Bearing Status after Di: As tolerated Diet after Discharge Diet after Discharge: GI Soft Follow-Up Follow up with: PCP within 2 weeks of discharge Follow Up With: Gastroenterology as needed and surgery if you want your gallbladder removed SPENCER RAMIREZ MD Mar 27, 2020 11:26
[2020-03-27 12:09] LABS: BASO % 0 % (0-3); EOS % 0 % (0-3); HEMOGLOBIN 15.8 g/dL (13.0-17.5); LYMPH # 2.9 x10^3/uL (1.0-4.8); LYMPH % 32 % (24-48); MEAN CORPUSCULAR HEMOGLOBIN 31 pg (25-35); MEAN CORPUSCULAR HGB CONC 34 g/dL (31-37); MEAN CORPUSCULAR VOLUME 90 fL (79-100); MONO # 0.7 x10^3/uL (0.0-1.1); MONO % 8 % (0-9); NEUT # 5.4 x10^3/uL (1.8-7.7); NEUT % 60 % (31-73); PLATELET COUNT 142 x10^3/uL (140-400); RED BLOOD COUNT 5.13 x10^6/uL (4.30-5.70); RED CELL DISTRIBUTION WIDTH 14.4 % (11.5-14.5); WHITE BLOOD COUNT 9.1 x10^3/uL (4.0-11.0)
--- NOTE | 2020-03-27 12:17 | NUR ---
Discharge Note: SALAZAR WORTHY Discharge instructions and discharge home medications reviewed with Patient and a copy given. All questions have been answered and understanding verbalized. The following instructions and handouts were given: f/u with PCP within one week. Discontinued lines and drains: Peripheral IV intact. Patient discharged to Home or Self Care with Self via Ambulated
[2020-03-27 12:31] LABS: CALCIUM 8.8 mg/dL (8.5-10.1); GFR 85.5; POTASSIUM 3.6 mmol/L (3.5-5.1)
--- NOTE | 2020-04-04 14:42 | PDOC3 ---
[facility]-Discharge Summary Date of Admission: Date of Admission: Mar 26, 2020 Date of Discharge: Date of Discharge: Mar 27, 2020 Discharge Diagnosis: Discharge Diagnosis: Intractable nausea vomiting SANTOS due to vasomotor nephropathy Hyperglycemia Enlarged liver Hospital Course: Hospital Course: Evaluated by GI and had ABD US and imaging showing GB sludge with enlarged liver. Biliary ducts were normal. Patient was told to be evaluated on an outpt basis and if symptoms persisted he would need a cholecystectomy. Patient ABD pain improved with some IVF and NPO. We advanced his diet during the day and tolerated. Instructed to keep on low fat and low protein diet until further evaluation with GI. 34 year old male who presents with nausea and vomiting since today. Can not keep anything fluids down. States he has only had ice chips today and has tried no food. Denies taking any medications to help his symptoms. Denies pain, abdominal pain, chest pain, nasal congestion, dizziness, shortness of breath, diarrhea, headache, syncope, back pain, urinary symptoms, numbness or tingling, focal weakness, cough. Denies any past medical history, drug use, alcohol use, or surgeries. Disposition: Disposition/Orders: D/C to Home Activity: Activity: Resume previous activity Diet: Diet: Soft Medications: Home Meds Active Scripts Dicyclomine Hcl (DICYCLOMINE HCL) 10 Mg Capsule, 1 CAP PO PRN Q6HRS for abd pain after eating for 30 Days, #100 CAP 3 Refills Prov:SPENCER RAMIREZ MD 03/27/20 Prochlorperazine Maleate (Compazine) 10 Mg Tablet, 1 TAB PO Q6HRS for nausea or vomiting for 30 Days, #120 TAB 0 Refills Prov:SPENCER RAMIREZ MD 03/27/20 Scheduled Dicyclomine Hcl (Dicyclomine Hcl), 1 CAP PO PRN Q6HRS Prochlorperazine Maleate (Compazine), 1 TAB PO Q6HRS Total Time: Total Time: Total time spent was 40 minutes in preparing scripts, discharge planning with SW and RN, and preparing this discharge summary. Patient seen and examined on day of discharge. Justicifation of Admission Dx: Justifications for Admission: Justification of Admission Dx: Yes SPENCER RAMIREZ MD Apr 04, 2020 14:42
== END 2020-03-27 12:17 | disposition home or self-care (01) | DRG 391 ==
LOC: ER 15:42 → ED HOLD 18:48 → 6 SOUTH 23:21
PROVIDERS: ADMIT Internal Medicine; ATTEND Internal Medicine
DX: K52.9 Noninfective gastroenteritis and colitis, unspecified (principal); N17.0 Acute kidney failure with tubular necrosis; N20.0 Calculus of kidney; R73.9 Hyperglycemia, unspecified; R16.0 Hepatomegaly, not elsewhere classified; Z88.0 Allergy status to penicillin; Z20.822 Contact with and (suspected) exposure to COVID-19
CPT/HCPCS: 36415; 74177; 76705; 80048; 80053; 80307; 81001; 82010; 83690; 83735; 85007; 85025; 87804; 90471; 90686; 96361; 96374; 96376; J0744; J0780; J2405; J2920; J3490; J7030; Q9967; U0003; 99285-25; G0378

== ENCOUNTER 2020-04-13 11:38 | Emergency (ER) | payer SELFPAY ==
[~2020-04-13] VITALS: Ht 180.3 cm; Wt 77.2 kg
[~2020-04-13 11:38] MED LIST: DICY10CA3 PO; PROC10TA57 PO
[2020-04-13] MEDS ORDERED: ONDANSETRON PF 4 MG/2 ML VIAL. ONE (12:11)
[2020-04-13] MEDS ORDERED: ONDANSETRON PF 4 MG/2 ML VIAL. IVP ONE (12:30)
[2020-04-13] MEDS ORDERED: IV NORMAL SALINE 1000ML BAG 1,000 ML IV ONE (12:30)
[2020-04-13 12:31] LABS: BASO % 0 % (0-3); EOS % 0 % (0-3); HEMATOCRIT 49.4 % (39.0-53.0); HEMOGLOBIN 16.9 g/dL (13.0-17.5); LYMPH # 1.1 x10^3/uL (1.0-4.8); LYMPH % 9 % (24-48); MEAN CORPUSCULAR HEMOGLOBIN 31 pg (25-35); MEAN CORPUSCULAR HGB CONC 34 g/dL (31-37); MEAN CORPUSCULAR VOLUME 90 fL (79-100); MONO # 0.6 x10^3/uL (0.0-1.1); MONO % 5 % (0-9); NEUT # 10.4 x10^3/uL (1.8-7.7); NEUT % 86 % (31-73); PLATELET COUNT 179 x10^3/uL (140-400); RED BLOOD COUNT 5.51 x10^6/uL (4.30-5.70); RED CELL DISTRIBUTION WIDTH 14.4 % (11.5-14.5); WHITE BLOOD COUNT 12.2 x10^3/uL (4.0-11.0)
[2020-04-13 12:40] LABS: CALCIUM 9.7 mg/dL (8.5-10.1); CREATININE 1.3 mg/dL (0.7-1.3); GFR 63.2; POTASSIUM 4.1 mmol/L (3.5-5.1)
[2020-04-13 12:46] LABS: ALBUMIN 4.3 g/dL (3.4-5.0); ALBUMIN/GLOBULIN RATIO 1.2 (1.0-1.7); TOTAL BILIRUBIN 0.3 mg/dL (0.2-1.0); TOTAL PROTEIN 7.8 g/dL (6.4-8.2)
[2020-04-13 14:04] LABS: BILIRUBIN,URINE SMALL (NEG); CLARITY,URINE CLOUDY; COLOR,URINE AMBER; NITRITE,URINE NEGATIVE (NEG); PH,URINE 5.5 (<5.0-8.0); PROTEIN,URINE 30 mg/dL (NEG-TRACE)
[2020-04-13 14:14] LABS: BARBITURATES NEG (NEG); BENZODIAZEPINES NEG (NEG); CANNABINOIDS NEG (NEG); COCAINE NEG (NEG); METHADONE NEG (NEG); OPIATES NEG (NEG); PHENCYCLIDINE NEG (NEG)
[2020-04-13 14:15] LABS: % ATYL 3 % (0-0); % BANDS 1 % (0-9); % LYMPHS 13 % (24-48); % MONOS 5 % (0-10); % SEGS 78 % (35-66)
[2020-04-13 14:15] LABS: AMPHETAMINE/METHAMPHETAMINE NEG (NEG)
[2020-04-13] MEDS ORDERED: METOCLOPRAMIDE HCL 10 MG/2 ML VIAL. IVP ONE (14:15)
[2020-04-13 14:16] LABS: PLT ESTIMATE ADEQUATE (ADEQUATE)
--- NOTE | 2020-04-13 14:26 | RAD ---
US ABDOMEN LTD History: Reason: RUQ abd pain, vomiting / Spl. Instructions: / History: Comparison: March 27, 2020. Technique: Transabdominal ultrasound images are obtained of the right upper quadrant. Findings: Liver is normal in echogenicity. Right hepatic lobe measures 17.9 cm. Portal flow is hepatopedal. Mild sludge within the gallbladder. No gallbladder wall thickening. No pericholecystic fluid. No chol elithiasis. Common bile duct measures 4 mm in diameter. Visualized pancreas unremarkable. The right kidney measures 13.0 x 6.1 x 4.5 cm. No hydronephrosis. Visualized portions of the aorta and IVC have normal caliber. IMPRESSION: 1. Gallbladder sludge, unchanged. Electronically signed by: Jed Talavera DO (04/13/2020 2:24 PM) [id number]
[2020-04-13 14:28] LABS: BACTERIA,URINE 0 /HPF (0-FEW); RBC,URINE OCC /HPF (0-2)
[2020-04-13] MEDS ORDERED: PROM25TA10 PO (15:10)
[2020-04-13 15:12] VITALS: BP 111/65
--- NOTE | 2020-04-13 15:15 | ED.ADGEN ---
Past Medical History Past Medical History: No Pertinent History Past Surgical History: No Surgical History Smoking Status: Former Smoker Alcohol Use: None General Adult EDM: Chief Complaint: NAUSEA/VOMITING/DIARRHA HPI: HPI: Patient is a 34-year-old male who presents to the emergency room complaining of intractable nausea and vomiting. Patient had a similar episode 3 weeks ago and was admitted at that time. He saw GI who believed that this was due to a biliary problem. He states he was feeling fine when he was discharged and did not have symptoms until yesterday. He was unable to fill his prescriptions due to cost. He denies any abdominal pain with this. He has not had any fevers, chills, sweats, diarrhea, constipation, URI symptoms, shortness of breath, chest pain. Review of Systems: Review of Systems: Complete ROS is negative unless otherwise documented in HPI Current Medications: Current Medications Medications (Trade) Dose Ordered Sig/Emilio Start Time Stop Time Status Last Admin Dose Admin Metoclopramide HCl (Reglan Vial) 10 mg 1X ONCE 04/13/20 14:15 04/13/20 14:16 DC 04/13/20 14:17 10 MG Ondansetron HCl (Zofran) 4 mg 1X ONCE 04/13/20 12:30 04/13/20 12:31 DC 04/13/20 12:20 4 MG Sodium Chloride 1,000 ml @ 1,000 mls/hr 1X ONCE 04/13/20 12:30 04/13/20 13:29 DC 04/13/20 12:20 1,000 MLS/HR Allergies: Allergies: Allergies Coded Allergies Type Severity Reaction Last Updated Verified Penicillins Allergy Intermediate 03/26/20 Yes Physical Exam: PE: General: Awake, alert, mild distress. Well Nourished, well hydrated. Cooperative HEENT: Atraumatic, EOMI, PERRL, airway patent, moist oral mucosa Neck: Supple, trachea midline Respiratory: CTA bilaterally, normal effort, no wheezing/crackles CV: RRR, no murmur, cap refill <2 GI: Soft, nondistended, nontender, no masses MSK: No obvious deformities Skin: Warm, dry, intact Neuro: A&O x3, speech NL, sensory and motor grossly intact, no focal deficits Psych: Normal affect, normal mood, not suicidal or homicidal Current Patient Data: Labs: Laboratory Tests Test 04/13/20 12:15 04/13/20 13:50 White Blood Count 12.2 x10^3/uL (4.0-11.0) H Red Blood Count 5.51 x10^6/uL (4.30-5.70) Hemoglobin 16.9 g/dL (13.0-17.5) Hematocrit 49.4 % (39.0-53.0) Mean Corpuscular Volume 90 fL (79-100) Mean Corpuscular Hemoglobin 31 pg (25-35) Mean Corpuscular Hemoglobin Concent 34 g/dL (31-37) Red Cell Distribution Width 14.4 % (11.5-14.5) Platelet Count 179 x10^3/uL (140-400) Neutrophils (%) (Auto) 86 % (31-73) H Lymphocytes (%) (Auto) 9 % (24-48) L Monocytes (%) (Auto) 5 % (0-9) Eosinophils (%) (Auto) 0 % (0-3) Basophils (%) (Auto) 0 % (0-3) Neutrophils # (Auto) 10.4 x10^3/uL (1.8-7.7) H Lymphocytes # (Auto) 1.1 x10^3/uL (1.0-4.8) Monocytes # (Auto) 0.6 x10^3/uL (0.0-1.1) Eosinophils # (Auto) 0.0 x10^3/uL (0.0-0.7) Basophils # (Auto) 0.0 x10^3/uL (0.0-0.2) Segmented Neutrophils % 78 % (35-66) H Band Neutrophils % 1 % (0-9) Lymphocytes % 13 % (24-48) L Atypical Lymphocytes % (Manual) 3 % (0-0) H Monocytes % 5 % (0-10) Platelet Estimate Adequate (ADEQUATE) Sodium Level 143 mmol/L (136-145) Potassium Level 4.1 mmol/L (3.5-5.1) Chloride Level 105 mmol/L (98-107) Carbon Dioxide Level 26 mmol/L (21-32) Anion Gap 12 (6-14) Blood Urea Nitrogen 13 mg/dL (8-26) Creatinine 1.3 mg/dL (0.7-1.3) Estimated GFR (Cockcroft-Gault) 63.2 BUN/Creatinine Ratio 10 (6-20) Glucose Level 150 mg/dL (70-99) H Calcium Level 9.7 mg/dL (8.5-10.1) Total Bilirubin 0.3 mg/dL (0.2-1.0) Aspartate Amino Transferase (AST) 16 U/L (15-37) Alanine Aminotransferase (ALT) 32 U/L (16-63) Alkaline Phosphatase 75 U/L (46-116) Total Protein 7.8 g/dL (6.4-8.2) Albumin 4.3 g/dL (3.4-5.0) Albumin/Globulin Ratio 1.2 (1.0-1.7) Lipase 151 U/L (73-393) Urine Collection Type Unknown Urine Color Susana Urine Clarity Cloudy Urine pH 5.5 (<5.0-8.0) Urine Specific Aiken >=1.030 (1.000-1.030) Urine Protein 30 mg/dL (NEG-TRACE) Urine Glucose (UA) Negative mg/dL (NEG) Urine Ketones (Stick) Negative mg/dL (NEG) Urine Blood Negative (NEG) Urine Nitrite Negative (NEG) Urine Bilirubin Small (NEG) Urine Urobilinogen Dipstick 1.0 mg/dL (0.2 mg/dL) Urine Leukocyte Esterase Negative (NEG) Urine RBC Occ /HPF (0-2) Urine WBC 5-10 /HPF (0-4) Urine Bacteria 0 /HPF (0-FEW) Urine Mucus Marked /LPF Urine Opiates Screen Neg (NEG) Urine Methadone Screen Neg (NEG) Urine Barbiturates Neg (NEG) Urine Phencyclidine Screen Neg (NEG) Urine Amphetamine/Methamphetamine Neg (NEG) Urine Benzodiazepines Screen Neg (NEG) Urine Cocaine Screen Neg (NEG) Urine Cannabinoids Screen Neg (NEG) Urine Ethyl Alcohol Neg (NEG) Laboratory Tests 04/13/20 12:15 Laboratory Tests 04/13/20 12:15 Vital Signs: Vital Signs Date Time Temp Pulse Resp B/P (MAP) Pulse Ox O2 Delivery O2 Flow Rate FiO2 04/13/20 13:29 62 19 106/56 (73) 96 Room Air 04/13/20 11:55 97.7 97.7 EKG: EKG: [] Heart Score: Risk Factors: Risk Factors: DM, Current or recent (<one month) smoker, HTN, HLP, family history of CAD, obesity. Risk Scores: Score 0 - 3: 2.5% MACE over next 6 weeks - Discharge Home Score 4 - 6: 20.3% MACE over next 6 weeks - Admit for Clinical Observation Score 7 - 10: 72.7% MACE over next 6 weeks - Early Invasive Strategies Radiology/Procedures: Radiology/Procedures: [] Course & Med Decision Making: Course & Med Decision Making Pertinent Labs and Imaging studies reviewed. (See chart for details) Patient is a 34-year-old male who presents to the emergency room complaining of intractable nausea and vomiting. Lab work was ordered and an upper abdominal ultrasound to evaluate the gallbladder was ordered. Work-up at this time is unremarkable. Patient likely has biliary colic. Junction is negative. This does not appear to be cyclic vomiting. Patient is feeling better after nausea medication. We will discharge him home with nausea medicine and have him follow-up with surgery outpatient. Patient's test results and vitals while in the ED were fully reviewed and discussed with the patient. Patient is stable and at this time does not need admission to the hospital. We have discussed strict return precautions and the importance of following up with their Primary Care Physician. Patient stated understanding and was given an opportunity to ask any questions. Patient is in agreement with plan. Juanito Disclaimer: Juanito Disclaimer: This electronic medical record was generated, in whole or in part, using a voice recognition dictation system. Departure Departure Impression: Primary Impression: Intractable nausea and vomiting Disposition: 01 DC HOME SELF CARE/HOMELESS Condition: STABLE Referrals: NO PCP (PCP) Patient Instructions: Biliary Colic Additional Instructions: [facility] Scripts Promethazine Hcl (PROMETHAZINE HCL) 25 Mg Tablet 1 TAB PO PRN Q6HRS for nausea and vomiting, #30 TAB Prov: CLIFF VALDEZ MD 04/13/20 CLIFF VALDEZ MD Apr 13, 2020 15:15
[2020-04-13] MEDS ORDERED: ONDA4TAB12 PO (21:57)
== END 2020-04-13 15:25 | disposition home or self-care (01) ==
LOC: ER 11:38
DX: R11.2 Nausea with vomiting, unspecified (principal); Z87.891 Personal history of nicotine dependence; Z88.0 Allergy status to penicillin
CPT/HCPCS: 36415; 76705; 80053; 80307; 81001; 83690; 85007; 85025; 96361; 96374; 96375; 99285; J2405; J2765; J7030

== ENCOUNTER 2020-04-13 20:27 | Emergency (ER) | payer SELFPAY ==
[~2020-04-13] VITALS: Ht 180.3 cm; Wt 77.0 kg
[~2020-04-13 20:27] MED LIST changes: +PROM25TA10 PO
--- NOTE | 2020-04-13 20:58 | PHYS DOC ---
Past Medical History Past Medical History: No Pertinent History Past Surgical History: No Surgical History Smoking Status: Unknown if ever smoked Alcohol Use: Occasionally General Adult EDM: Chief Complaint: NAUSEA/VOMITING/DIARRHA HPI: HPI: 34-year-old male past medical history of intractable nausea and vomiting, presents to the ED with complaints of nausea and nonbloody vomiting that occurred just prior to arrival, no relief with 2 tablets of Phenergan that was prescribed on prior ED visit today. Reports decreased oral intake due to fear of exacerbating further nausea and vomiting. Reports he has struggled with intractable nausea and vomiting since 2014 and at that time he discontinued marijuana use, has not used any marijuana for 4 years (has to wear work patch for 2 weeks that they test for drugs). Was seen at and admitted for this in 2014. Reports no associated abdominal pain, diarrhea, hematochezia, hematemesis, pain pain/rash, melena, back pain, fatigue, malaise or anorexia. No history of blood transfusions. No history of HIV, states he gave plasma in 2019. No history of Covid and tested negative on recent [facility] admission a few weeks ago. Is engaged. No history of outpatient GI follow-up due to lack of insurance, no barium swallow study, EGD or colonoscopy. Denies any daily alcohol use or history of liver disease. Patient was seen in the ED today by Dr. Marin and ultrasound was concerning for biliary colic with biliary sludge. Had a white count of 12.2 with normal LFTs and bilirubin. Drug screen was negative, lipase is negative. Urinalysis showed no blood, occasional RBCs, 5-10 WBCs with no bacteria, nitrates or leukocyte esterase. Patient was prescribed promethazine and referred to [facility] or . Patient was admitted March 25 through April 04 of this year for intractable nausea and vomiting. CT at that time showed esophagitis versus colitis. Was seen by GI who recommended outpatient cholecystectomy-imaging consistent with gallbladder sludge and enlarged liver. Was discharged home with Compazine and dicyclomine. Review of Systems: Review of Systems: Constitutional: Denies fever or chills. [] Eyes: Denies change in visual acuity. [] HENT: Denies nasal congestion or sore throat. [] Respiratory: Denies cough or shortness of breath. [] Cardiovascular: Denies chest pain or edema. [] GI: Denies abdominal pain, bloody stools or diarrhea. [] : Denies dysuria or hematuria Musculoskeletal: Denies back pain or joint pain. [] Integument: Denies rash or diaphoresis Neurologic: Denies headache, focal weakness or sensory changes. [] Endocrine: Denies polyuria or polydipsia. [] Lymphatic: Denies swollen glands. [] Psychiatric: Denies depression or anxiety. [] Heart Score: Risk Factors: Risk Factors: DM, Current or recent (<one month) smoker, HTN, HLP, family history of CAD, obesity. Risk Scores: Score 0 - 3: 2.5% MACE over next 6 weeks - Discharge Home Score 4 - 6: 20.3% MACE over next 6 weeks - Admit for Clinical Observation Score 7 - 10: 72.7% MACE over next 6 weeks - Early Invasive Strategies Current Medications: Current Medications Medications (Trade) Dose Ordered Sig/Emilio Start Time Stop Time Status Last Admin Dose Admin Info (CONTRAST GIVEN -- Rx MONITORING) 1 each PRN DAILY PRN 04/13/20 21:00 04/15/20 20:59 Iohexol (Omnipaque 300 Mg/ml) 75 ml 1X ONCE 04/13/20 21:00 04/13/20 21:01 Ondansetron HCl (Zofran) 8 mg 1X ONCE 04/13/20 21:00 04/13/20 21:01 Allergies: Allergies: Allergies Coded Allergies Type Severity Reaction Last Updated Verified Penicillins Allergy Intermediate 03/26/20 Yes Physical Exam: PE: Constitutional: Well developed, well nourished, no acute distress, non-toxic appearance. HENT: Normocephalic, atraumatic, Eyes: EOMI, conjunctiva normal, no discharge. Neck: Normal range of motion, supple, Cardiovascular: S1/2 present, regular rhythm Lungs & Thorax: Speaking in full sentences, bilateral equal chest rise, no tachypnea or increased work of breathing Abdomen: soft, no tenderness, Skin: Warm, dry, no erythema, no rash. [] Back: No tenderness, no CVA tenderness. [] Extremities: No tenderness, no cyanosis, no edema Neurologic: Alert and oriented X 3, normal motor function, normal sensory function, no focal deficits noted. [] Psychologic: Affect normal, judgement normal, mood normal. [] Current Patient Data: Vital Signs: Vital Signs Date Time Temp Pulse Resp B/P (MAP) Pulse Ox O2 Delivery O2 Flow Rate FiO2 04/13/20 20:41 97.5 71 18 142/67 (92) 99 97.5 EKG: EKG: [] Radiology/Procedures: Radiology/Procedures: IMAGING REPORT Signed PATIENT: SALAZAR WORTHY ACCOUNT: [id number] : 1985 LOCATION: ER AGE: 34 SEX: M EXAM STATUS: REG ER ORD. PHYSICIAN: FREDDIE BLAKE DO REASON: n/v PROCEDURE: CHEST AP ONLY Exam: Chest one view INDICATION: Nausea vomiting TECHNIQUE: Frontal view of chest Comparisons: None FINDINGS: The cardiomediastinal silhouette and pulmonary vessels are within normal limits. The lung and pleural spaces are clear. IMPRESSION: No acute cardiopulmonary process. Electronically signed by: Kayleigh Horta MD (04/13/2020 9:34 PM) [facility] DICTATED and SIGNED BY: KAYLEIGH HORTA MD DATE: 04/13/20 [id number] IMAGING REPORT Signed PATIENT: SALAZAR WORTHY ACCOUNT: [id number] : 1985 LOCATION: ER AGE: 34 SEX: M EXAM STATUS: REG ER ORD. PHYSICIAN: FREDDIE BLAKE DO REASON: nausea and vomiting PROCEDURE: CT ABD PELV W/ IV CONTRST ONLY Exam: CT of abdomen and pelvis with contrast INDICATION: Nausea and vomiting TECHNIQUE: Sequential axial images through the abdomen and pelvis obtained following the administration of 75 mL of Isovue-370 IV contrast. Sagittal and coronal reformatted images were reconstructed from the axial data and reviewed. Comparisons: None FINDINGS: Heart size is normal. No pericardial effusion. Visualized lung bases are clear. No pleural effusion Liver, spleen, pancreas, gallbladder and adrenals are unremarkable. No perinephric inflammation or hydronephrosis. No renal or ureteral calculi are identified. Bladder is decompressed not well evaluated. Prostate is not enlarged. Large and small bowel are unremarkable. Appendix is normal. No free intra- abdominal air or fluid. No obstruction. Abdominal aorta has a normal course caliber. Abdominal vasculature is patent. No enlarged abdominal lymph nodes are identified. No suspicious osseous lesions or acute fractures. IMPRESSION: No acute process identified within the abdomen or pelvis. Exposure: One or more of the following in the visualized dose reduction techniques were utilized for this examination: 1. Automated exposure control 2. Adjustment of the MA and/or KV according to patient size 3. Use of iterative of reconstructive technique Electronically signed by: Kayleigh Horta MD (04/13/2020 9:33 PM) [facility] DICTATED and SIGNED BY: KAYLEIGH HORTA MD DATE: 04/13/[id number] 0 Course & Med Decision Making: Course & Med Decision Making Pertinent Labs and Imaging studies reviewed. (See chart for details) Patient with no further nausea or vomiting after IV Zofran given. Patient states he never filled his Compazine or dicyclomine after being discharged from the hospital due to cost. CT imaging ordered due to history of esophagitis and colitis on prior CT. CT shows no acute process with normal abdominal aorta. Patient is afebrile, no tachycardia, well-appearing and gracious for his care. Will prescribe Zofran ODT 20 tablets, with 1 refill (if they're effective in com bination w/phenergan). Patient educated that he needs further outpatient GI studies including barium swallow, EGD and colonoscopy to evaluate for other causes of intractable nausea and vomiting, including SMA syndrome. Will discharge home with strict ED return precautions were given for dehydration, tachycardia, persistent nausea or vomiting, fever, abdominal or back pain. Encouraged urgent outpatient follow-up with PMD and GI. Life-threatening processes were considered but are low suspicion at this time, given history, physical exam and ED workup. Pt was educated on all prescription medications and adverse effects. All patient's questions were answered and pt was stable at time of discharge. Life/limb-threatening differential includes but is not limited to, acute coronary syndrome/myocardial infarction, Boerhaave's, DKA, intracranial hemorrhage, ischemic bowel, meningitis, sepsis, surgical abdomen (AAA), toxidrome (drug over/overdose/carbon monoxide, etc), ovarian/testicular torsion, trauma, or infection/sepsis. I spoken with the patient and her caregivers. I explained the patient's condition, diagnoses and treatment plan based on the information available to me at this time. I have answered the patient and her caregiver's questions and addressed any concerns. The patient and her caregivers have a good understanding of patient's diagnosis, condition and treatment plan as can be expected at this point. Vital signs have been stable. Patient's condition is stable and appropriate for discharge from the emergency department. Patient will pursue further outpatient evaluation with primary care physician or other designated or consulting physician as outlined in the discharge instructions. The patient and/or caregivers are agreeable to this plan of care and follow-up instructions have been explained in detail. The patient and/or caregivers have received these instructions in written form and have expressed an understanding of the discharge instructions. The patient and/or caregivers are aware that any significant change of condition or worsening of symptoms should prompt immediate return to this or the closest emergency department [facility] Disclaimer: Juanito Disclaimer: This electronic medical record was generated, in whole or in part, using a voice recognition dictation system. Departure Departure Impression: Primary Impression: Intractable nausea and vomiting Disposition: 01 DC HOME SELF CARE/HOMELESS Condition: STABLE Referrals: NO PCP (PCP) FOLLOW UP WITH FAMILY MEDICINE: Family Medicine Address: [address] [place] [address] Patient Instructions: Nausea and Vomiting Additional Instructions: EMERGENCY DEPARTMENT GENERAL DISCHARGE INSTRUCTIONS Thank you for coming to [facility] Emergency Department (ED) today and trusting us with you care. We trust that you had a positive experience in our Emergency Department. If you wish to speak to the department management, you may call the Director at [phone]. YOUR FOLLOW UP INSTRUCTIONS ARE FOLLOWS: 1. Do you have a private Doctor? If you do not have a private doctor, please ask for a resource list of physicians or clinics that may be able to assist you with follow up care. 2. The Emergency Physicain has interpreted your x-rays. The X-Ray specialist will also review them. If there is a change in the findings, you will be notified in 48 hours when at all possible. 3. A lab test or culture has been done, your results will be reviewed and you will be notified if you need a change in treatment. ADDITIONAL INSTRUCTIONS AND INFORMATION: 1. Your care today has been supervised by a physician who is specially trained in emergency care. Many problems require more than one evaluation for a complete diagnosis and treatment. We recommend that you schedule your follow up appointment as recommended to ensure complete treatment of you illness or injury. If you are unable to obtain follow up care and continue to have a problem, or if your condition worsens, we recommend that you return to the ED. 2. We are not able to safely determine your condition over the phone nor are we able to give sound medical advice over the phone. For these safety reasons, if you call for medical advice we will ask you to come to the ED for further evaluation. 3. If you have any questions regarding these discharge instructions please call the ED at [phone]. SAFETY INFORMATION: In the interest of safety, wellness, and injury prevention; we encourage you to wear your sealbelt, if you smoke; quite smoking, and we encourage family to use a protective helmet for bicycling and other sporting events that present an increased risk for head injury. IF YOUR SYMPTOMS WORSEN OR NEW SYMPTOMS DEVELOP, OR YOU HAVE CONCERNS ABOUT YOUR CONDITION; OR IF YOUR CONDITION WORSENS WHILE YOU ARE WAITING FOR YOUR FOLLOW UP APPOINTMENT; EITHER CONTACT YOUR PRIMARY CARE DOCTOR, THE PHYSICIAN WHOSE NAME AND NUMBER YOU WERE GIVEN, OR RETURN TO THE ED IMMEDIATELY. Scripts Ondansetron (ONDANSETRON ODT) 4 Mg Tab.rapdis 1 TAB PO Q4HRS, #20 TAB 1 Refill Prov: FREDDIE BLAKE DO 04/13/20 FREDDIE BLAKE DO Apr 13, 2020 20:58
[2020-04-13] MEDS ORDERED: IOHEXOL 300 MG/ML 100ML VIAL. IV ONE (21:00)
[2020-04-13] MEDS ORDERED: ONDANSETRON PF 4 MG/2 ML VIAL. IVP ONE (21:00)
[2020-04-13] MEDS ORDERED: CONTRAST GIVEN. MC PRN (21:00)
--- NOTE | 2020-04-13 21:36 | RAD ---
Exam: CT of abdomen and pelvis with contrast INDICATION: Nausea and vomiting TECHNIQUE: Sequential axial images through the abdomen and pelvis obtained following the administrati on of 75 mL of Isovue-370 IV contrast. Sagittal and coronal reformatted images were reconstructed fro m the axial data and reviewed. Comparisons: None FINDINGS: Heart size is normal. No pericardial effusion. Visualized lung bases are clear. No pleural effusion Liver, spleen, pancreas, gallbladder and adrenals are unremarkable. No perinephric inflammation or hydronephrosis. No renal or ureteral calculi are identified. Bladder is decompressed not well evaluated. Prostate is not enlarged. Large and small bowel are unremarkable. Appendix is normal. No free intra-abdominal air or fluid. No obstruction. Abdominal aorta has a normal course caliber. Abdominal vasculature is patent. No enlarged abdominal lymph nodes are identified. No suspicious osseous lesions or acute fractures. IMPRESSION: No acute process identified within the abdomen or pelvis. Exposure: One or more of the following in the visualized dose reduction techniques were utilized for this examination: 1. Automated exposure control 2. Adjustment of the MA and/or KV according to patient size 3. Use of iterative of reconstructive technique Electronically signed by: Kayleigh Schaffer MD (04/13/2020 9:33 PM) [facility]
--- NOTE | 2020-04-13 21:36 | RAD ---
Exam: Chest one view INDICATION: Nausea vomiting TECHNIQUE: Frontal view of chest Comparisons: None FINDINGS: The cardiomediastinal silhouette and pulmonary vessels are within normal limits. The lung and pleural spaces are clear. IMPRESSION: No acute cardiopulmonary process. Electronically signed by: Kayleigh Schaffer MD (04/13/2020 9:34 PM) [facility]
[2020-04-13] MEDS ORDERED: ONDA4TAB12 PO (21:57)
[2020-04-13 22:12] VITALS: BP 134/70
== END 2020-04-13 22:12 | disposition home or self-care (01) ==
LOC: ER 20:27
DX: R11.2 Nausea with vomiting, unspecified (principal); Z88.0 Allergy status to penicillin
CPT/HCPCS: 71045; 74177; 96374; 99285; J2405; Q9967

== ENCOUNTER 2021-05-16 09:59 | Emergency (ER) | payer SELFPAY ==
[~2021-05-16] VITALS: Ht 182.9 cm; Wt 77.2 kg
[~2021-05-16 09:59] MED LIST changes: +ONDA4TAB12 PO
[2021-05-16] MEDS ORDERED: KETOROLAC 15 MG/ML VIAL. IVP ONE (10:45)
[2021-05-16] MEDS ORDERED: PROCHLORPERAZINE 10 MG/2 ML VIAL. IV ONE (10:45)
[2021-05-16] MEDS ORDERED: diphenhydrAMINE 50 MG/ML VIAL IVP ONE (10:45)
[2021-05-16] MEDS ORDERED: IV NORMAL SALINE 1000ML BAG 1,000 ML IV ONE (10:45)
[2021-05-16 10:57] LABS: CALCIUM 9.3 mg/dL (8.5-10.1); CREATININE 1.4 mg/dL (0.7-1.3); GFR 57.7; POTASSIUM 3.8 mmol/L (3.5-5.1)
[2021-05-16 11:06] LABS: BASO # 0.1 x10^3/uL (0.0-0.2); BASO % 0 % (0-3); EOS # 0.1 x10^3/uL (0.0-0.7); EOS % 1 % (0-3); HEMATOCRIT 54.3 % (39.0-53.0); HEMOGLOBIN 18.3 g/dL (13.0-17.5); LYMPH # 3.5 x10^3/uL (1.0-4.8); LYMPH % 29 % (24-48); MEAN CORPUSCULAR HEMOGLOBIN 30 pg (25-35); MEAN CORPUSCULAR HGB CONC 34 g/dL (31-37); MEAN CORPUSCULAR VOLUME 90 fL (79-100); MONO # 0.8 x10^3/uL (0.0-1.1); MONO % 7 % (0-9); NEUT # 7.7 x10^3/uL (1.8-7.7); NEUT % 63 % (31-73); PLATELET COUNT 197 x10^3/uL (140-400); RED BLOOD COUNT 6.06 x10^6/uL (4.30-5.70); RED CELL DISTRIBUTION WIDTH 14.2 % (11.5-14.5); WHITE BLOOD COUNT 12.1 x10^3/uL (4.0-11.0)
[2021-05-16 11:07] LABS: ALBUMIN 4.4 g/dL (3.4-5.0); ALBUMIN/GLOBULIN RATIO 1.4 (1.0-1.7); TOTAL BILIRUBIN 0.7 mg/dL (0.2-1.0); TOTAL PROTEIN 7.5 g/dL (6.4-8.2)
[2021-05-16 13:00] VITALS: BP 142/70
[2021-05-16] MEDS ORDERED: IOHEXOL 300 MG/ML 100ML VIAL. IV ONE (13:15)
[2021-05-16] MEDS ORDERED: CONTRAST GIVEN. MC PRN (13:15)
[2021-05-16 13:24] LABS: CLARITY,URINE TURBID
[2021-05-16 13:28] LABS: COLOR,URINE BROWN
[2021-05-16 13:30] LABS: AMORPHOUS SEDIMENT,UR PRESENT /HPF
[2021-05-16 13:31] LABS: BACTERIA,URINE 0 /HPF (0-FEW); RBC,URINE TNTC /HPF (0-2); WBC,URINE 0 /HPF (0-4)
--- NOTE | 2021-05-16 13:59 | RAD ---
CT ABDOMEN+PELVIS W History: Left lower quadrant, left flank pain. Comparison: CT abdomen and pelvis 04/13/2020 Technique: CT abdomen and pelvis with oral and intravenous contrast Findings: There is mild left hydronephrosis and hydroureter with a 3 mm distal left ureterolith (axial image 75 ). Mild hypoenhancement of the left kidney. No right or left nephrolithiasis identified. The bladder is decompressed and unremarkable. The prostate is unremarkable. The lung bases are clear. The liver, gallbladder, pancreas, spleen, and adrenal glands are unremarkab le. The stomach and small bowel are within normal limits. The colon demonstrates no significant wall thickening or pericolonic inflammatory change. No abdominopelvic free air or free fluid. No adenopath y. Vasculature is unremarkable. Soft tissues and osseous structures are within normal limits. Impression: 1. Distal left ureterolith measuring 3 mm causing mild left hydronephroureter. ------ Exposure: One or more of the following individualized dose reduction techniques were utilized for thi s examination: 1. Automated exposure control 2. Adjustment of the mA and/or kV according to patient size 3. Use of iterative reconstruction technique. Electronically signed by: Alfredo Desir MD (05/16/2021 1:57 PM) [id number]
[2021-05-16] MEDS ORDERED: ONDANSETRON PF 4 MG/2 ML VIAL. IVP ONE (14:15)
[2021-05-16] MEDS ORDERED: TAMS0.4C97 PO (14:24)
[2021-05-16] MEDS ORDERED: ONDA4TAB12 PO (14:24)
[2021-05-16] MEDS ORDERED: OXYC5CAP PO (14:24)
--- NOTE | 2021-05-16 14:25 | PHYS DOC ---
Past Medical History Past Medical History: No Pertinent History Past Surgical History: No Surgical History Smoking Status: Unknown if ever smoked Alcohol Use: Occasionally General Adult EDM: Chief Complaint: NAUSEA/VOMITING/DIARRHEA HPI: HPI: Patient is a 35 year old male who presents with left flank and left lower qu adrant pain for the past 3 days. States that he feels like has to urinate, but then does not ultimately have to urinate. Denies dysuria. no fever/chills. Thinks there is blood in his urine. has been vomiting frequently. No hematemesis. No changes in BM. No hx of intra-abdominal surgeries or kidney stone. No regular medications. Review of Systems: Review of Systems: Constitutional: Denies fever or chills. [] Eyes: Denies change in visual acuity. [] HENT: Denies nasal congestion or sore throat. [] Respiratory: Denies cough or shortness of breath. [] Cardiovascular: Denies chest pain or edema. [] GI: Reports left lower quadrant pain, nausea, vomiting. Denies bloody stools or diarrhea. [] : Denies dysuria. Reports hematuria and flank pain. [] Musculoskeletal: Denies back pain or joint pain. [] Integument: Denies rash. [] Neurologic: Denies headache, focal weakness or sensory changes. [] Psychiatric: Denies depression or anxiety. [] Heart Score: C/O Chest Pain: No Current Medications: Current Medications Medications (Trade) Dose Ordered Sig/Emilio Start Time Stop Time Status Last Admin Dose Admin Diphenhydramine HCl (Benadryl) 25 mg 1X ONCE 05/16/21 10:45 05/16/21 10:46 DC 05/16/21 10:43 25 MG Info (CONTRAST GIVEN -- Rx MONITORING) 1 each PRN DAILY PRN 05/16/21 13:15 05/18/21 13:14 Iohexol (Omnipaque 300 Mg/ml) 60 ml 1X ONCE 05/16/21 13:15 05/16/21 13:16 DC 05/16/21 13:16 60 ML Ketorolac Tromethamine (Toradol 15mg Vial) 15 mg 1X ONCE 05/16/21 10:45 05/16/21 10:46 DC 05/16/21 10:43 15 MG Ondansetron HCl (Zofran) 4 mg 1X ONCE 05/16/21 14:15 05/16/21 14:16 UNV Prochlorperazine Edisylate (Compazine) 10 mg 1X ONCE 05/16/21 10:45 05/16/21 10:46 DC 05/16/21 10:42 10 MG Sodium Chloride 1,000 ml @ 1,000 mls/hr 1X ONCE 05/16/21 10:45 05/16/21 11:44 DC 05/16/21 10:43 1,000 MLS/HR Allergies: Allergies: Allergies Coded Allergies Type Severity Reaction Last Updated Verified Penicillins Allergy Intermediate 03/26/20 Yes Physical Exam: PE: Constitutional: Appears uncomfortable, occasionally retching. Moving around frequently. HENT: Normocephalic, atraumatic Neck: Normal range of motion, no tenderness, supple, no stridor. [] Cardiovascular:Heart rate regular rhythm, no murmur [] Lungs & Thorax: Bilateral breath sounds clear to auscultation [] Abdomen: Mild tenderness to palpation left lower quadrant. Skin: Warm, dry, no erythema, no rash. [] Extremities: No tenderness, no cyanosis, no clubbing, ROM intact, no edema. [] Neurologic: Alert and oriented X 3, normal motor function, normal sensory function, no focal deficits noted. [] Psychologic: Affect normal, judgement normal, mood normal. [] Current Patient Data: Labs: Laboratory Tests Test 05/16/21 10:18 05/16/21 12:50 White Blood Count 12.1 x10^3/uL (4.0-11.0) H Red Blood Count 6.06 x10^6/uL (4.30-5.70) H Hemoglobin 18.3 g/dL (13.0-17.5) H Hematocrit 54.3 % (39.0-53.0) H Mean Corpuscular Volume 90 fL (79-100) Mean Corpuscular Hemoglobin 30 pg (25-35) Mean Corpuscular Hemoglobin Concent 34 g/dL (31-37) Red Cell Distribution Width 14.2 % (11.5-14.5) Platelet Count 197 x10^3/uL (140-400) Neutrophils (%) (Auto) 63 % (31-73) Lymphocytes (%) (Auto) 29 % (24-48) Monocytes (%) (Auto) 7 % (0-9) Eosinophils (%) (Auto) 1 % (0-3) Basophils (%) (Auto) 0 % (0-3) Neutrophils # (Auto) 7.7 x10^3/uL (1.8-7.7) Lymphocytes # (Auto) 3.5 x10^3/uL (1.0-4.8) Monocytes # (Auto) 0.8 x10^3/uL (0.0-1.1) Eosinophils # (Auto) 0.1 x10^3/uL (0.0-0.7) Basophils # (Auto) 0.1 x10^3/uL (0.0-0.2) Sodium Level 143 mmol/L (136-145) Potassium Level 3.8 mmol/L (3.5-5.1) Chloride Level 104 mmol/L (98-107) Carbon Dioxide Level 21 mmol/L (21-32) Anion Gap 18 (6-14) H Blood Urea Nitrogen 17 mg/dL (8-26) Creatinine 1.4 mg/dL (0.7-1.3) H Estimated GFR (Cockcroft-Gault) 57.7 BUN/Creatinine Ratio 12 (6-20) Glucose Level 161 mg/dL (70-99) H Calcium Level 9.3 mg/dL (8.5-10.1) Total Bilirubin 0.7 mg/dL (0.2-1.0) Aspartate Amino Transferase (AST) 16 U/L (15-37) Alanine Aminotransferase (ALT) 19 U/L (16-63) Alkaline Phosphatase 81 U/L (46-116) Total Protein 7.5 g/dL (6.4-8.2) Albumin 4.4 g/dL (3.4-5.0) Albumin/Globulin Ratio 1.4 (1.0-1.7) Urine Collection Type Unknown Urine Color Brown Urine Clarity Turbid Urine pH (<5.0-8.0) Urine Specific [place] (1.000-1.030) Urine Protein mg/dL (NEG-TRACE) Urine Glucose (UA) mg/dL (NEG) Urine Ketones (Stick) mg/dL (NEG) Urine Blood (NEG) Urine Nitrite (NEG) Urine Bilirubin (NEG) Urine Urobilinogen Dipstick mg/dL (0.2 mg/dL) Urine Leukocyte Esterase (NEG) Urine RBC Tntc /HPF (0-2) Urine WBC 0 /HPF (0-4) Urine Amorphous Sediment Present /HPF Urine Bacteria 0 /HPF (0-FEW) Urine Mucus Marked /LPF Laboratory Tests 05/16/21 10:18 Laboratory Tests 05/16/21 10:18 Vital Signs: Vital Signs Date Time Temp Pulse Resp B/P (MAP) Pulse Ox O2 Delivery O2 Flow Rate FiO2 05/16/21 10:12 96.9 53 24 131/68 (89) 98 Room Air 96.9 EKG: EKG: [] Radiology/Procedures: Radiology/Procedures: [] Course & Med Decision Making: Course & Med Decision Making Pertinent Labs and Imaging studies reviewed. (See chart for details) Patient 35-year-old male presents with 3 days of left flank/left lower quadrant pain, hematuria. On arrival is afebrile, vital signs stable. Appears very uncomfortable and scratching. Improved with ketorolac and Compazine for nausea. UA shows nadia blood. CT shows a 3 mm left-sided kidney stone corresponding with symptoms. Do not believe this represents septic stone. Pain is adequately controlled at this time. Will be discharged with tamsulosin, Zofran, instructions for regular ibuprofen use, and hydrocodone for breakthrough pain. Will be provided with urology follow-up Juanito Disclaimer: Juanito Disclaimer: This electronic medical record was generated, in whole or in part, using a voice recognition dictation system. Departure Departure Impression: Primary Impression: Ureterolithiasis Disposition: HOME / SELF CARE / HOMELESS Condition: STABLE Referrals: NO PCP (PCP) KEYA AVERY MD Patient Instructions: Kidney Stones Additional Instructions: You have a 3 mm left sided stone in your ureter. This will hopefully pass on its own. Sometimes stones need surgical intervention to pass. So, please call Dr. Avery's office if the pain does not pass on its own in the next few days. You may need a PCP referral depending on insurance and particular urology practice requirements. The focus for now is on pain control. For pain tylenol and ibuprofen are best used on a schedule. Please alternate between the two. -Tylenol 1000 mg every 6 hours (do not exceed 4000 mg in one day). -Ibuprofen 600 mg every 6 hours. Take with food. Do not take for more than 1 week. For pain not managed by the above you can take: Oxycodone 1 tab every 4-6 hours. For nausea: Zofran 4 mg every 6 hours, let it dissolve under your tongue. To help the stone pass there is a medication called tamsulosin. Please take 1 tab once daily. Scripts Oxycodone Hcl (OXYCODONE HCL) 5 Mg Capsule 5 MG PO PRN Q6HRS PRN for PAIN, #10 TAB 0 Refills Prov: CELY BELLE MD 05/16/21 Ondansetron (ONDANSETRON ODT) 4 Mg Tab.rapdis 1 TAB PO PRN Q4-6HRS PRN for NAUSEA/VOMITING, #20 TAB 0 Refills Prov: CELY BELLE MD 05/16/21 Tamsulosin Hcl (FLOMAX) 0.4 Mg Cap.er.24h 1 CAP PO DAILY, #30 CAP 0 Refills Prov: CELY BELLE MD 05/16/21 CELY BELLE MD May 16, 2021 14:25
== END 2021-05-16 14:58 | disposition home or self-care (01) ==
LOC: ER 09:59
DX: N13.2 Hydronephrosis with renal and ureteral calculous obstruction (principal); Z88.0 Allergy status to penicillin
CPT/HCPCS: 36415; 74177; 80053; 81001; 85025; 87491; 87591; 96361; 96374; 96375; 99285; J0780; J1200; J1885; J2405; J7030; Q9967